=== PATIENT | female | born 1960 | race Caucasian/White ===

== ENCOUNTER 2018-02-15 17:26 | Inpatient (IN) ==
[2018-02-15] MEDS ORDERED: ALBUTEROL SULFATE 2.5 MG/3 ML NEBULIZER NEB ONE (18:00)
[2018-02-15] MEDS ORDERED: IPRATROPIUM/ALBUTEROL 3 ML AMPUL.NEB NEB ONE (18:01)
[2018-02-15] MEDS ORDERED: 0.9 % SODIUM CHLORIDE 1,000 ML IV SCH (18:15)
[2018-02-15 18:44] LABS: Basophils # (Auto) 0 K/mcL (0.0-0.3); Basophils % (Auto) 0 % (0.0-2.0); Eosinophils # (Auto) 0 K/mcL (0.0-0.7); Eosinophils % (Auto) 0 % (0.0-7.0); Granulocytes % (Auto) 92.1 % (38.0-78.0); Lymphocytes # (Auto) 0.5 K/mcL (1.5-4.8); Mean Corpuscular HGB Conc 33.6 g/dL (31.0-36.0); Monocytes # (Auto) 0.5 K/mcL (0.1-0.9); Monocytes % (Auto) 3.9 % (1.0-12.0); Platelet Count 307 K/mcL (140-440); RBC 4.46 M/mcL (4.00-5.20); Red Cell Distribution Width 16.6 % (11.5-14.5)
[2018-02-15 19:01] LABS: ALT/SGPT 12 U/l (0-40); Albumin 3.6 gm/dL (3.2-5.2); Alkaline Phosphatase 88 U/L (39-117); Blood Urea Nitrogen 20 mg/dl (6-20); Creatine Kinase 108 IU/L (24-170); Creatine Kinase MB 2.7 ng/ml (0-2.9); proBNP 409.2 pg/ml (0-125)
--- NOTE | 2018-02-15 19:13 | XRay Report ---
CLINICAL INFORMATION: Cough. Dyspnea. TECHNIQUE: PA chest x-ray. Oblique views of the right ribs. COMPARISON: Chest x-rays dated 03/01/2017 and 05/06/2011 FINDINGS: No detectable right rib fractures. No lytic lesions. Mildly elevated right hemidiaphragm. There are bibasilar infiltrates, right worse than left. Appearance is consistent with pneumonia. Mid and upper lungs are negative. There is moderate cardiomegaly. No evidence for congestive heart failure. No pneumothorax. No significant hemothorax. No mediastinal widening. Scapula and clavicles are negative IMPRESSION: 1. Negative right ribs. No detectable fracture. 2. Bilateral, bibasilar pulmonary parenchymal infiltrates, right worse than left. Findings are consistent with pneumonia Interpreted and Authenticated by: Jose Cruz Scherer 02/15/18
[2018-02-15] MEDS ORDERED: LEVALBUTEROL 1.25 MG/3 ML AMPUL.NEB NEB ONE (19:39)
[2018-02-15] MEDS ORDERED: FUROSEMIDE 20 MG/2 ML VIAL IV ONE ×2 (20:20→22:25)
[2018-02-15] MEDS ORDERED: methylPREDNISolone SOD SUCC 125 MG/2 ML VIAL IV ONE (20:30)
[2018-02-15] MEDS ORDERED: VANCOMYCIN 1,000 MG in 0.9 % SODIUM CHLORIDE 250 ML IV ONE (20:31)
[2018-02-15] MEDS ORDERED: PIPERACILLIN SODIUM/TAZOBACTAM 3.375 GM in DEXTROSE 5% IN WATER 50 ML IV ONE (20:31)
--- NOTE | 2018-02-15 20:36 | Emergency Department Note ---
SOB HPI - General Chief Complaint: Shortness of Breath/Dyspnea Stated Complaint: shortness of breath Time Seen by Provider: 02/15/18 18:26 Source: patient Mode of arrival: ambulatory Limitations: no limitations - History of Present Illness This pleasant 57-year-old female comes in with 3-day history of thinking and asthma exacerbation was occurring and becoming significantly more short of breath. She took an extra amount of prednisone yesterday, total of 50 mg and also this morning. She has chronic asthma, very severe, multiple medications including usual dose of daily prednisone of 25-30. Patient did not take her furosemide today because of being out and about. She takes this because of edema. She usually takes 20 in the morning 1 day 20 the next day, and 40 the third day, and then repeats. She has not had fevers. She has had some chills and some chronic dry mouth. She had some night sweats last night but she states that this is common when she takes the higher doses of prednisone. She sees a manager manufacturing, Dr. Angulo, for her asthma. REVIEW OF SYSTEMS: Some sore throat, runny nose. Some chronic nasal congestion/postnasal drainage. Has pain in the right lateral lower rib cage area which is common when she has had a pneumonia previously or before. It worsens with a deep breath. She is coughing. She has more phlegm than she used to. She is wheezing. Some nausea for the last couple of days but no vomiting or diarrhea or constipation or hematochezia. Some sense of stool urgency. No dysuria. Some low back discomfort but she has been more active recently. 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 No rashes No headaches but has felt weak. No anxiety or depression. - Related Data Home Medications Medication Instructions Recorded Confirmed traMADol [Ultram] 50 - 100 mg PO Q4HP PRN 04/15/16 02/01/18 fluticasone 220 mcg/actuation HFA See Label Instructions INHALATION 09/15/1608/14 aerosol inhaler .COMPLEX fluticasone 250 mcg-salmeterol 50 See Label Instructions INHALATION 09/15/1608/14 mcg/dose blistr powdr for .COMPLEX inhalation levalbuterol HFA 45 mcg/actuation See Label Instructions INHALATION 09/15/1608/14 aerosol inhaler .COMPLEX montelukast 10 mg tablet 10 mg PO QDAY tab 09/15/16 02/01/18 omeprazole 20 mg capsule,delayed 20 mg PO QDAY cap 09/15/16 02/01/18 release roflumilast 500 mcg tablet 500 mcg PO QDAY 09/15/16 02/01/18 levalbuterol 0.63 mg/3 mL solution 2.5 mg INHALATION BID PRN ml 10/11/16 for nebulization Bacillus coagulans 10 billion cell cell PO QDAY each 12/02/16 02/01/18 capsule,delayed release digestive enzymes capsule 1 cap PO TID each 12/02/16 02/01/18 mepolizumab 100 mg subcutaneous 100 mg SUB-Q Q4W 12/02/16 02/01/18 solution beclomethasone dipropionate 40 2 inh INTRANASAL QDAY 04/10/17 02/01/18 mcg/actuation nasal HFA inhaler prednisone 50 mg tablet 25 mg PO DAILY tab 08/15/17 02/01/18 Previous Rx's Medication Instructions Recorded diltiazem ER 120 mg 120 mg PO BID #90 tab 02/02/18 tablet,extended release 24 hr tiotropium bromide 2.5 2 puff INHALATION QDAY #4 g 02/02/18 mcg/actuation mist for inhalation coenzyme Q10 200 mg capsule 200 mg PO QDAY #30 cap 02/05/18 dicyclomine 10 mg capsule 10 mg PO QID #40 cap 02/05/18 furosemide 40 mg tablet 40 mg PO QDAY #30 tab 02/05/18 isosorbide dinitrate 30 mg tablet 30 mg PO QDAY #30 tab 02/05/18 potassium chloride ER 10 mEq 10 meq PO BID #60 cap 02/05/18 capsule,extended release rivas ling 750 mg PO .COMPLEX #60 02/05/18 Allergies Allergy/AdvReac Type Severity Reaction Status Date / Time albuterol Allergy Unknown Irregular Verified 02/15/18 17:27 heart rate azithromycin Allergy Unknown myalgia Verified 02/15/18 17:27 moxifloxacin [From Avelox] Allergy Unknown Heartburn Verified 02/15/18 17:27 pseudoephedrine Allergy Unknown Jittery, Verified 02/15/18 17:27 [From Sudafed] heart paplitations aspirin AdvReac Severe Swelling Verified 02/15/18 17:27 of Lip/Tongue/Throat Past Medical History - Past Medical History [facility] Narrative: Medical History (Last Updated 02/15/18 @ 20:37 by Italo Bosch DO) Steroid-induced myopathy (Chronic) Presbyesophagus (Chronic) Hiatal hernia (Chronic) Dry mouth (Chronic) Hoarseness (Chronic) Chronic throat clearing (Chronic) COPD (chronic obstructive pulmonary disease) (Chronic) Cough (Chronic) Wheezing (Chronic) DUNLAP (dyspnea on exertion) (Chronic) Fatigue (Chronic) UTI (urinary tract infection) (Chronic) Osteopenia (Chronic) GERD (gastroesophageal reflux disease) (Chronic) Idiopathic neuropathy (Chronic) Hypercholesterolemia (Chronic) Irregular heart beats (Chronic) Edema of lower extremity (Chronic) Myalgia (Chronic) Asthma (Chronic) High cholesterol (Chronic) Seizures (Chronic) Past Surgical History (Last Reviewed 02/01/18 @ 16:55 by Mesfin Angulo MD) History of section (Chronic) History of colonoscopy (Chronic 11/12/15) History of elbow surgery (Chronic) History of tonsillectomy and adenoidectomy (Chronic) Family History (Last Reviewed 02/01/18 @ 16:55 by Mesfin Angulo MD) Mother Diabetes Heart disease Father CVA (cerebral vascular accident) Sister Diabetes Thyroid disorder - Social History smoking status: Never smoker Physical Exam Limitations: no limitations General appearance: alert, in no apparent distress Head: atraumatic, normocephalic Eye: Present: EOMI, other ENT: mucous membranes moist Neck: Present: trachea midline. Absent: lymphadenopathy, thyromegaly Chest: Present: symmetric chest wall rise Respiratory: Present: rales/crackles, wheezes, prolonged expiratory phase ( slightly). Absent: stridor, accessory muscle use Cardiovascular: Present: regular rate, normal rhythm. Absent: systolic murmur, diastolic murmur Abdominal: Present: soft. Absent: distention, tenderness, guarding, rebound, rigidity, organomegaly, mass Extremities: Present: pedal edema (1+/4), pretibial edema (1+/4). Absent: calf tenderness Back: Absent: CVA tenderness (R), CVA tenderness (L) Neurological: Present: alert, oriented X3 Psychiatric: Present: serious, tearful (after hearing about needing to stay.) Skin: Present: warm, dry Course Vital Signs Temperature 98.8 F 02/15/18 17:26 Pulse Rate 105 H 02/15/18 17:26 Respiratory Rate 18 02/15/18 17:26 Blood Pressure 127/79 02/15/18 17:26 Pulse Oximetry (%) 90 02/15/18 17:26 Temperature 98.8 F 02/15/18 17:26 Pulse Rate 102 H 02/15/18 20:21 Respiratory Rate 17 02/15/18 20:01 Blood Pressure 130/80 02/15/18 20:16 Pulse Oximetry (%) 93 02/15/18 20:21 Shortness of Breath/Dyspnea - Lab Data Lab results reviewed: Yes I reviewed the patient's lab results. Result diagrams: 02/15/18 18:00 02/15/18 18:00 Lab Results 02/15/18 02/15/18 02/15/18 Range/Units 18:00 18:00 18:00 WBC 13.1 H (4.5-11.0) K/mcL RBC 4.46 (4.00-5.20) M/mcL Hgb 12.9 (12.0-15.0) g/dL Hct 38.4 (36.0-48.0) % MCV 86.0 (80.0-100.0) fL MCH 28.9 (26.0-34.0) pg MCHC 33.6 (31.0-36.0) g/dL RDW 16.6 H (11.5-14.5) % Plt Count 307 (140-440) K/mcL MPV 8.0 (7.4-10.4) fL Gran % 92.1 H (38.0-78.0) % Lymph % (Auto) 4.0 L (15.5-49.0) % [place] % (Auto) 3.9 (1.0-12.0) % Eos % (Auto) 0 (0.0-7.0) % Baso % (Auto) 0 (0.0-2.0) % Gran # 12.1 H (1.8-8.0) K/mcL Lymph # (Auto) 0.5 L (1.5-4.8) K/mcL [place] # (Auto) 0.5 (0.1-0.9) K/mcL Eos # (Auto) 0 (0.0-0.7) K/mcL Baso # (Auto) 0 (0.0-0.3) K/mcL D-Dimer 1.07 H (0.00-0.40) ug/ml Sodium 139 (133-145) mmol/L Potassium 3.6 (3.3-5.1) mmol/L Chloride 100 (96-108) mmol/L Carbon Dioxide 23 (22-30) mmol/L Anion Gap 16.0 (8-16) BUN 20 (6-20) mg/dl Creatinine 0.8 (0.6-1.1) mg/dl GFR Calculation 81 Glucose 148 H (70-105) mg/dL Calcium 10.4 (8.6-10.4) mg/dl Total Bilirubin 0.3 (0.0-1.0) mg/dL AST 17 (0-37) U/l ALT 12 (0-40) U/l Alkaline Phosphatase 88 (39-117) U/L Total Creatine Kinase 108 (24-170) IU/L CK-MB (CK-2) 2.7 (0-2.9) ng/ml Troponin T (0-0.03) ng/ml NT-Pro-B Natriuret Pep 409.2 H (0-125) pg/ml Total Protein 7.1 (5.9-8.4) gm/dL Albumin 3.6 (3.2-5.2) gm/dL Globulin 3.5 (2.2-3.7) gm/dL Albumin/Globulin Ratio 1.0 (1.0-2.3) Procalcitonin (<0.10) ng/mL 02/15/18 02/15/18 02/15/18 Range/Units 18:00 18:00 18:00 WBC (4.5-11.0) K/mcL RBC (4.00-5.20) M/mcL Hgb (12.0-15.0) g/dL Hct (36.0-48.0) % MCV (80.0-100.0) fL MCH (26.0-34.0) pg MCHC (31.0-36.0) g/dL RDW (11.5-14.5) % Plt Count (140-440) K/mcL MPV (7.4-10.4) fL Gran % (38.0-78.0) % Lymph % (Auto) (15.5-49.0) % [place] % (Auto) (1.0-12.0) % Eos % (Auto) (0.0-7.0) % Baso % (Auto) (0.0-2.0) % Gran # (1.8-8.0) K/mcL Lymph # (Auto) (1.5-4.8) K/mcL [place] # (Auto) (0.1-0.9) K/mcL Eos # (Auto) (0.0-0.7) K/mcL Baso # (Auto) (0.0-0.3) K/mcL D-Dimer (0.00-0.40) ug/ml Sodium (133-145) mmol/L Potassium (3.3-5.1) mmol/L Chloride (96-108) mmol/L Carbon Dioxide (22-30) mmol/L Anion Gap (8-16) BUN (6-20) mg/dl Creatinine (0.6-1.1) mg/dl GFR Calculation Glucose (70-105) mg/dL Calcium (8.6-10.4) mg/dl Total Bilirubin (0.0-1.0) mg/dL AST (0-37) U/l ALT (0-40) U/l Alkaline Phosphatase (39-117) U/L Total Creatine Kinase 107 (24-170) IU/L CK-MB (CK-2) (0-2.9) ng/ml Troponin T < 0.01 (0-0.03) ng/ml NT-Pro-B Natriuret Pep (0-125) pg/ml Total Protein (5.9-8.4) gm/dL Albumin (3.2-5.2) gm/dL Globulin (2.2-3.7) gm/dL Albumin/Globulin Ratio (1.0-2.3) Procalcitonin 1.95 (<0.10) ng/mL - Radiology Data Radiology results reviewed: Yes I reviewed the patient's radiology results. - EKG Data EKG results narrative: No acute coronary syndrome findings. This ECG will be read by a forepart reducer. Disposition Pt seen by SHOE REPAIRER HELPER/PA only: No Clinical Impression: Hypoxia, Immunosuppressed status Bilateral pneumonia Qualifiers: Pneumonia type: due to unspecified organism Lung location: lower lobe of lung Qualified Code(s): J18.1 - Lobar pneumonia, unspecified organism Asthma exacerbation Qualifiers: Asthma severity: moderate Asthma persistence: persistent Qualified Code(s): J45.41 - Moderate persistent asthma with (acute) exacerbation Summary: With multiple risk factors including her suppressed immune status being 1 of the most important, patient is at risk of further decompensation, worsening or not improving with just outpatient treatment. I discussed her care with Dr. Morris Pitts, hospitalist, who kindly accept her care for hospitalization here. Blood cultures, vancomycin and Zosyn ordered. He will consider adding Levaquin. CT angios ordered because of the elevated d-dimer. Her pro- calcitonin was elevated at 1.95, white count at 13.1 Disposition: Xfer As Inpt ([facility]) Condition: Fair Referrals: Megan Zhang MD [Primary Care Provider] -
--- NOTE | 2018-02-15 21:19 | Internal Med History&Physical ---
Medical - H&P: HPI Patient information: Note initiated : 02/15/18 at 9:13 pm Service Date, if different from initiated Date: [] Patient: Marissa Bermudez a 57 y/o F admitted on for shortness of breath. Chief Complaint: [] History of present illness: Ms. Bermudez is a 57 year old F Who presents with shortness of breath and productive cough. Patient states that Monday morning she woke up short of breath she had a productive cough that was thin secretions shortness of breath continued to worsen. She is felt chilled had some night sweats no fevers. She has sinus congestion which is common for her. Her symptoms developed rather rapidly and she felt like it could be a pneumonia. She did take an extra dose of her prednisone and continue to use her as needed inhalers. Patient is has severe asthma on multiple inhalers and is on high-dose steroids. She has been on 20-30 mg for some time. She has been on steroids since she was 10. She feels wheezy. Denies chest pain but has little abdominal discomfort on occasion. She did travel to [place] last week. No other travels. Sick contacts she is not aware of anybody in particular but she is around many people each day and suspects she could be exposed by someone. She sees Dr. Angulo and Dr. Jovel. She sees Dr. Garsia for CAD. She did have a cardiac catheterization which showed narrowing. She is allergic to aspirin and she did not want intervention. She is starting on a cholesterol medication. She has chronic peripheral edema GERD steroid myopathy In the ER she was seen and found to have a mildly elevated white blood cell count she is tachypneic and tachycardic and she had no lid pro calcitonin with a chest x-ray that showed infiltrate bibasilar with right side much worse. She is given multiple breathing treatments and put on OxiMax because of hypoxia. She is not on oxygen at home. The low S she gets at home is 91% she states. Review of Systems: Pertinent positives as above . denies headache/fever/nausea/vomiting/chest pain/ diarrhea. Remaining 10 point review of systems reviewed negative Medical - H&P: PMH Medical history: Medical History (Last Updated 02/15/18 @ 20:37 by Italo Bosch DO) Steroid-induced myopathy (Chronic) Presbyesophagus (Chronic) Hiatal hernia (Chronic) Dry mouth (Chronic) Hoarseness (Chronic) Chronic throat clearing (Chronic) COPD (chronic obstructive pulmonary disease) (Chronic) Cough (Chronic) Wheezing (Chronic) DUNLAP (dyspnea on exertion) (Chronic) Fatigue (Chronic) UTI (urinary tract infection) (Chronic) Osteopenia (Chronic) GERD (gastroesophageal reflux disease) (Chronic) Idiopathic neuropathy (Chronic) Hypercholesterolemia (Chronic) Irregular heart beats (Chronic) Edema of lower extremity (Chronic) Myalgia (Chronic) Asthma (Chronic) High cholesterol (Chronic) Seizures (Chronic) CAD no intervention Past Surgical History (Last Reviewed 02/01/18 @ 16:55 by Mesfin Angulo MD) History of section (Chronic) History of colonoscopy (Chronic 11/12/15) History of elbow surgery (Chronic) History of tonsillectomy and adenoidectomy (Chronic) Family History (Last Reviewed 02/01/18 @ 16:55 by Mesfin Angulo MD) Mother Diabetes Heart disease Father CVA (cerebral vascular accident) Sister Diabetes Thyroid disorder Social History (Last Updated 02/01/18 @ 17:06 by Mesfin Angulo MD) Denies tobacco alcohol ambulates with a walker lives with family Medical - H&P: Meds Home Medications Medication Instructions Recorded Confirmed Type fluticasone 220 mcg/actuation HFA See Label Instructions INHALATION 09/15/16 History aerosol inhaler .COMPLEX fluticasone 250 mcg-salmeterol 50 See Label Instructions INHALATION 09/15/16 History mcg/dose blistr powdr for .COMPLEX inhalation levalbuterol HFA 45 mcg/actuation See Label Instructions INHALATION 09/15/16 History aerosol inhaler .COMPLEX montelukast 10 mg tablet 10 mg PO QDAY tab 09/15/16 02/15/18 History omeprazole 20 mg capsule,delayed 20 mg PO QDAY cap 09/15/16 02/15/18 History release roflumilast 500 mcg tablet 500 mcg PO QDAY 09/15/16 02/15/18 History levalbuterol 0.63 mg/3 mL solution 1.25 mg INHALATION BID PRN ml 10/11/1602/15 History for nebulization Bacillus coagulans 10 billion cell 1 tab PO QDAY each 12/02/16 02/15/18 History capsule,delayed release mepolizumab 100 mg subcutaneous 100 mg SUB-Q Q4W 12/02/16 02/15/18 History solution beclomethasone dipropionate 40 2 inh INTRANASAL QDAY 04/10/17 02/15/18 History mcg/actuation nasal HFA inhaler prednisone 50 mg tablet 25 mg PO DAILY tab 08/15/17 02/15/18 History diltiazem ER 120 mg 120 mg PO BID #90 tab 02/02/18 02/15/18 Rx tablet,extended release 24 hr tiotropium bromide 2.5 2 puff INHALATION QDAY #4 g 02/02/18 02/15/18 Rx mcg/actuation mist for inhalation coenzyme Q10 200 mg capsule 200 mg PO QDAY #30 cap 02/05/18 02/15/18 Rx furosemide 40 mg tablet 40 mg PO QDAY #30 tab 02/05/18 02/15/18 Rx isosorbide dinitrate 30 mg tablet 30 mg PO QDAY #30 tab 02/05/18 02/15/18 Rx potassium chloride ER 10 mEq 10 meq PO BID #60 cap 02/05/18 02/15/18 Rx capsule,extended release rivas ling 1,500 mg PO BID 02/15/18 02/15/18 History Allergies Allergy/AdvReac Type Severity Reaction Status Date / Time albuterol Allergy Unknown Irregular Verified 02/15/18 17:27 heart rate azithromycin Allergy Unknown myalgia Verified 02/15/18 17:27 moxifloxacin [From Avelox] Allergy Unknown Heartburn Verified 02/15/18 17:27 pseudoephedrine Allergy Unknown Jittery, Verified 02/15/18 17:27 [From Sudafed] heart paplitations aspirin AdvReac Severe Swelling Verified 02/15/18 17:27 of Lip/Tongue/Throat Medical - H&P: Exam - Constitutional Vitals: Temp Pulse Resp BP Pulse Ox 98.8 F 103 H 17 117/89 93 02/15/18 17:26 02/15/18 20:59 02/15/18 20:01 02/15/18 20:46 02/15/18 20:59 Exam: General: Alert, Awake, No acute Distress Eyes/N/T: EOMI, PEERL, DMM Head/Neck: neck supple, normocephalic atraumatic CV: RRR, No murmurs, normal s1/s2 Pulm: Diminished breath sounds bibasilar mild rhonchi bilaterally and mild wheezing bilaterally Abd: soft, nontender, +BS x4, Ext: no clubbing/cyanosis, 2-3+ bilateral lower extremity edema Neuro: Alert, no focal deficits, moves all extremities, CN 2-12 grossly intact, symmetrical strength b/l upper/lower, sensations intact b/l upper/lower Skin: warm/dry, smith facies, skin thinning, facial erythema Medical - H&P: Reslt - Labs CBC & Chem 7: 02/15/18 18:00 02/15/18 18:00 Labs: Short CBC 02/15/18 Range/Units 18:00 WBC 13.1 H (4.5-11.0) K/mcL Hgb 12.9 (12.0-15.0) g/dL Hct 38.4 (36.0-48.0) % Plt Count 307 (140-440) K/mcL BMP 02/15/18 18:00 Sodium 139 Potassium 3.6 Chloride 100 Carbon Dioxide 23 BUN 20 Creatinine 0.8 Glucose 148 H Calcium 10.4 Cardiac Enzymes 02/15/18 02/15/18 02/15/18 Range/Units 18:00 18:00 18:00 Total Creatine Kinase 108 107 (24-170) IU/L CK-MB (CK-2) 2.7 (0-2.9) ng/ml Troponin T < 0.01 (0-0.03) ng/ml Liver Function 02/15/18 Range/Units 18:00 Total Bilirubin 0.3 (0.0-1.0) mg/dL AST 17 (0-37) U/l ALT 12 (0-40) U/l Alkaline Phosphatase 88 (39-117) U/L Albumin 3.6 (3.2-5.2) gm/dL - Impressions Chest x-ray with bilateral infiltrates worse on the right Medical - H&P: A/P - Narrative A/P Narrative: A: *Acute hypoxic respiratory failure: *Pneumonia in immunosuppressed patient: -elevated PCT *Asthma exacerbation: Follows Dr. Angulo in [facility] *Sepsis: *Immunosuppression secondary to chronic prednisone use for asthma: She states she has been on steroids since she was 10 -Currently on 25-30 mg daily *CAD: Has not had intervention. Follows with Dr. Sams, recently started medication for hyperlipidemia *Sequelae of chronic glucocorticoids: Including dermatological changes, cushingoid features, peripheral edema, and steroid myopathy *GERD: P: -vanco/zosyn/levaquin -SC including fungal cx's. BC also pending -Nebs/IS/Acapella/RT -Steroids (wean) -wean O2 -monitor PEF -cont home meds - -ppx: lovenox/pepcid full code
[2018-02-15] MEDS: NITROGLYCERIN 0.4 MG TAB.SUBL SL PRN ×2 (21:26→21:31)
[2018-02-15] MEDS ORDERED: ALBUTEROL SULFATE 5 MG/ML NEB SOLUTION BOTTLE NEB ONE ×2 (21:47→23:02)
[2018-02-15] MEDS ORDERED: VANCOMYCIN PER PHARMACY IV ONE (22:29)
[2018-02-15] MEDS ORDERED: IPRATROPIUM/ALBUTEROL 3 ML AMPUL.NEB NEB PRN (22:29)
[2018-02-15] MEDS ORDERED: PROMETHAZINE 25 MG TABLET PO PRN (22:29)
[2018-02-15] MEDS ORDERED: ACETAMINOPHEN 325 MG TABLET PO PRN (22:29)
[2018-02-15] MEDS ORDERED: DEXTROSE 31 GM ORAL.SUSP PO PRN (22:29)
[2018-02-15] MEDS ORDERED: ONDANSETRON 4 MG/2 ML VIAL IV PRN (22:29)
[2018-02-15] MEDS ORDERED: PROCHLORPERAZINE 25 MG SUPP.RECT PR PRN (22:29)
[2018-02-15] MEDS ORDERED: NITROGLYCERIN 0.4 MG TAB.SUBL SL PRN (22:29)
[2018-02-15] MEDS ORDERED: DEXTROSE 50% 50 ML VIAL IV PRN (22:29)
[2018-02-15] MEDS ORDERED: FAMOTIDINE 20 MG TABLET PO ONE (22:42)
[2018-02-15] MEDS ORDERED: LEVOFLOXACIN 750 MG/150 ML BAG IV ONE (22:43)
[2018-02-15] MEDS: INSULIN LISPRO 1 UNIT/0.01 ML UNIT SQ SCH (22:59)
[2018-02-15] MEDS: PIPERACILLIN SODIUM/TAZOBACTAM 3.375 GM in DEXTROSE 5% IN WATER 50 ML IV SCH (22:59)
[2018-02-15] MEDS: LEVOFLOXACIN 750 MG/150 ML BAG IV SCH (23:00)
[2018-02-15] MEDS ORDERED: methylPREDNISolone SOD SUCC 125 MG/2 ML VIAL ONE (23:19)
[2018-02-16] MEDS ORDERED: LEVALBUTEROL 0.63 MG/3 ML AMPUL.NEB ONE (00:01)
[2018-02-16] MEDS: FAMOTIDINE 20 MG TABLET PO SCH ×3 (00:07→21:44)
[2018-02-16] MEDS: 0.9 % SODIUM CHLORIDE 10 ML SYRINGE IV SCH ×4 (00:07→21:45)
[2018-02-16] MEDS: LEVALBUTEROL 0.63 MG/3 ML AMPUL.NEB NEB SCH ×4 (00:30→18:35)
[2018-02-16] MEDS ORDERED: IPRATROPIUM 2.5 ML AMPUL.NEB ONE (00:39)
[2018-02-16] MEDS: IPRATROPIUM 2.5 ML AMPUL.NEB NEB SCH ×4 (00:41→18:35)
[2018-02-16] MEDS: PIPERACILLIN SODIUM/TAZOBACTAM 3.375 GM in DEXTROSE 5% IN WATER 50 ML IV SCH ×4 (01:19→16:58)
[2018-02-16] MEDS: methylPREDNISolone SOD SUCC 125 MG/2 ML VIAL IV SCH ×4 (04:25→21:45)
[2018-02-16 05:33] LABS: Basophils # (Auto) 0 K/mcL (0.0-0.3); Basophils % (Auto) 0 % (0.0-2.0); Eosinophils # (Auto) 0 K/mcL (0.0-0.7); Eosinophils % (Auto) 0 % (0.0-7.0); Granulocytes % (Auto) 95.3 % (38.0-78.0); Lymphocytes # (Auto) 0.1 K/mcL (1.5-4.8); Lymphocytes % (Auto) 1.4 % (15.5-49.0); Mean Cell Volume 86.4 fL (80.0-100.0); Mean Corpuscular HGB Conc 33.3 g/dL (31.0-36.0); Monocytes # (Auto) 0.3 K/mcL (0.1-0.9); Monocytes % (Auto) 3.3 % (1.0-12.0); Platelet Count 299 K/mcL (140-440); RBC 3.95 M/mcL (4.00-5.20); Red Cell Distribution Width 16.5 % (11.5-14.5)
[2018-02-16 05:49] LABS: ALT/SGPT 10 U/l (0-40); Albumin 3.1 gm/dL (3.2-5.2); Albumin/Globulin Ratio 0.9 (1.0-2.3); Alkaline Phosphatase 75 U/L (39-117); Bilirubin,Direct < 0.2 mg/dL (0.0-0.3); Blood Urea Nitrogen 18 mg/dl (6-20); Gamma Glutamyl Transpeptidase 45 U/L (5-36); Uric Acid 6.7 mg/dL (2.5-8.0)
--- NOTE | 2018-02-16 06:09 | Cat Scan Report ---
CLINICAL INFORMATION: Dyspnea. Abnormal chest x-ray with probable pneumonia COMPARISON: Chest x-ray and right RIBS dated 02/15/2018. Previous chest x-ray dated 03/01/2017 TECHNIQUE: Axial images obtained through the chest. 60 mL contrast material intravenous contrast was administered, and scanning was performed during pulmonary arterial phase. Sagittally and coronally reformatted images were obtained. MIP reformatted images. FINDINGS: Main pulmonary artery, right pulmonary artery, left pulmonary artery are negative. No intraluminal filling defects. No lobar, segmental, or subsegmental abnormalities. Negative examination for pulmonary embolism. Mild tree in bud type infiltrate in the right upper lobe. There is right middle lobe and right lower lobe volume loss and infiltrate with air bronchograms. Appearance is consistent with pneumonia. Mild left lower lobe infiltrate. Follow-up radiographs are recommended. 4 mm noncalcified left upper lobe nodule, image 47/120 no other pulmonary parenchymal nodules identified. Optional [address] follow-up recommended per Fleischner Society guidelines No hilar or mediastinal pathologic adenopathy. No axillary or supraclavicular adenopathy. No pleural fluid. No pericardial fluid. On caudal-most images there is a 2.1 cm mass in the pancreatic neck. This is not optimally visualized. Pancreatic CT scan or MRI scan recommended for further evaluation. Thoracic spine is negative. No fractures. No lytic lesion. There are fractures of the left seventh and fifth ribs anterolaterally. There appears to be some healing indicating these are not acute. Clinical correlation necessary. No left rib fractures. Scapula and clavicles are negative. Examination was initially interpreted by [facility] IMPRESSION: 1. Negative examination for pulmonary embolism 2. Pulmonary parenchymal infiltrates consistent with pneumonia. Follow-up recommended 3. Fractures of the left seventh and fifth ribs anterolaterally. Chronicity not certain 4. 2.1 cm low density lesion in neck of the pancreas. Recommend pancreatic evaluation with MRI scan or CT scan The exam was performed using radiation dose optimization techniques including, but not limited to, automated exposure control, adjustment of the mA and/or kV according to patient size and use of iterative reconstruction technique. Interpreted and Authenticated by: Jose Cruz Scherer 02/16/18
[2018-02-16] MEDS ORDERED: VANCOMYCIN PER PHARMACY IV SCH (06:15)
[2018-02-16] MEDS ORDERED: POTASSIUM CHLORIDE 20 MEQ TABLET PO ONE (07:13)
--- NOTE | 2018-02-16 07:16 | Internal Med Progress Note ---
Medical - PN: Subj Patient information: Note initiated : 02/16/18 at 7:08 am Service Date, if different from initiated Date: [] Patient: Marissa Bermudez a 57 y/o F admitted on 02/15/18 for shortness of breath. Chief Complaint: [] Interval history: Ms. Bermudez is a 57 year old F Who presents with shortness of breath and productive cough. Patient states that Monday morning she woke up short of breath she had a productive cough that was thin secretions shortness of breath continued to worsen. She is felt chilled had some night sweats no fevers. She has sinus congestion which is common for her. Her symptoms developed rather rapidly and she felt like it could be a pneumonia. She did take an extra dose of her prednisone and continue to use her as needed inhalers. Patient is has severe asthma on multiple inhalers and is on high-dose steroids. She has been on 20-30 mg for some time. She has been on steroids since she was 10. She feels wheezy. Denies chest pain but has little abdominal discomfort on occasion. She did travel to [place] last week. No other travels. Sick contacts she is not aware of anybody in particular but she is around many people each day and suspects she could be exposed by someone. She sees Dr. Angulo and Dr. Jovel. She sees Dr. Garsia for CAD. She did have a cardiac catheterization which showed narrowing. She is allergic to aspirin and she did not want intervention. She is starting on a cholesterol medication. She has chronic peripheral edema GERD steroid myopathy In the ER she was seen and found to have a mildly elevated white blood cell count she is tachypneic and tachycardic and she had no lid pro calcitonin with a chest x-ray that showed infiltrate bibasilar with right side much worse. She is given multiple breathing treatments and put on OxiMax because of hypoxia. She is not on oxygen at home. The low S she gets at home is 91% she states. 02/16 Feeling much better today. Her coughing is much less productive and less frequent. Her shortness of breath all the present is much improved. Was able to get up in the bed and get to the chair without becoming too short of breath. Review of Systems: denies headache/fever/chills/nausea/vomiting/chest or abdominal pain/diarrhea. Otherwise see above. - Constitutional Vitals: Vital Signs Temp Pulse Resp BP Pulse Ox 98.9 F 114 H 22 116/82 97 02/16/18 04:40 02/15/18 23:59 02/16/18 04:40 02/16/18 04:40 02/16/18 04:40 Period Temp Pulse Resp BP Sys/Baird Pulse Ox Last 24 Hr 98.8 F-99.0 F 96-117 17-33 108-149/74-92 89-99 Intake and Output 02/15/18 02/16/18 02/16/18 21:59 05:59 13:59 Intake Total 250 / 250 Output Total 1000 / 1000 Balance -750 / -750 Weight 62.142 kg 62.142 kg Intake & Output: Intake & Output 02/15/18 02/16/18 02/16/18 21:59 05:59 13:59 Intake Total 250 / 250 Output Total 1000 / 1000 Balance -750 / -750 Weight 62.142 kg 62.142 kg Intake: IV 250 / 250 Zosyn 3.375 gm In Dextrose 5% 100 / 100 in Water 50 ml @ 100 mls/hr IV Q6H [facility] Rx#:[id number] Output: Void Amount 1000 / 1000 Other: Urine Appearance Cloudy Urine Color Bright Yellow Urine Odor Normal Exam: General: Alert, Awake, No acute Distress Eyes/N/T: EOMI, Head/Neck: neck supple, CV: RRR, No murmurs, normal s1/s2 Pulm: Diminished breath b/l but better aeration today and mild b/l exp wheezing , mild rhonchi bilaterally Abd: soft, nontender, +BS x4, protuberant Ext: no clubbing/cyanosis, 2-3+ bilateral lower extremity edema Neuro: Alert, no focal deficits, moves all extremities, Skin: warm/dry, smith facies, skin thinning, facial erythema Medical - PN: Obj Da - Labs CBC & Chem 7: 02/16/18 03:44 02/16/18 03:44 Labs: Abnormal Lab Results 02/16/18 02/16/18 02/15/18 03:44 03:44 18:00 WBC RBC 3.95 L Hgb 11.4 L Hct 34.1 L RDW 16.5 H Gran % 95.3 H Lymph % (Auto) 1.4 L Gran # 9.9 H Lymph # (Auto) 0.1 L D-Dimer Potassium 3.2 L Anion Gap 18.0 H Glucose 191 H 148 H GGT 45 H NT-Pro-B Natriuret Pep 409.2 H Albumin 3.1 L Albumin/Globulin Ratio 0.9 L Triglycerides 181 H 02/15/18 02/15/18 18:00 18:00 WBC 13.1 H RBC Hgb Hct RDW 16.6 H Gran % 92.1 H Lymph % (Auto) 4.0 L Gran # 12.1 H Lymph # (Auto) 0.5 L D-Dimer 1.07 H Potassium Anion Gap Glucose GGT NT-Pro-B Natriuret Pep Albumin Albumin/Globulin Ratio Triglycerides Meds: Medications Acetaminophen (Tylenol) 650 mg PO Q6HP PRN PRN Reason: PAIN/FEVER > 101 Albuterol/Ipratropium (Duoneb) 3 ml NEB Q6HRT PRN PRN Reason: Bronchospasm Atorvastatin Calcium (Lipitor) 20 mg PO HS [facility] Dextrose (Dextrose 50%) 0 ml IV UD PRN PRN Reason: Hypoglycemia Diagnostic Test (Pha) (Accu-Chek) 1 each FS ACHS [facility] Last Admin: 02/15/18 22:58 Dose: 1 each Diltiazem HCl (Cardizem Cd) 120 mg PO BID [facility] Enoxaparin Sodium (Lovenox) 40 mg SQ DAILY [facility] Famotidine (Pepcid) 20 mg PO BID [facility] Last Admin: 02/16/18 00:07 Dose: 20 mg Furosemide (Lasix) 40 mg PO QDAY [facility] Glucose (Insta-Glucose) 15 gm PO PRN PRN PRN Reason: Hypoglycemia Levofloxacin (Levaquin) 750 mg in 150 mls @ 100 mls/hr IV Q24H [facility] Last Infusion: 02/16/18 01:22 Dose: Infused Piperacillin Sod/Tazobactam (Sod 3.375 gm/ Dextrose) 50 mls @ 100 mls/hr IV Q6H [facility] Last Admin: 02/16/18 06:59 Dose: 100 mls/hr Vancomycin HCl 1,000 mg/ (Sodium Chloride) 250 mls @ 250 mls/hr IV Q12H [facility] Insulin Human Lispro (Humalog) 0 unit SQ [facility]; Protocol Last Admin: 02/15/18 22:59 Dose: Not Given Ipratropium [place] (Atrovent) 2.5 ml NEB Q6HRT [facility] Last Admin: 02/16/18 00:41 Dose: 2.5 ml Lactobacillus Rhamnosus (Culturelle) 1 cap PO BID [facility] Levalbuterol HCl (Xopenex) 0.63 mg NEB Q6HRT [facility] Last Admin: 02/16/18 00:30 Dose: 0.63 mg Methylprednisolone Sodium Succinate (Solu-Medrol) 80 mg IV Q8 [facility] Last Admin: 02/16/18 06:29 Dose: Not Given Montelukast Sodium (Singular) 10 mg PO QDAY [facility] Nitroglycerin (Nitrostat) 0.4 mg SL Q5M PRN PRN Reason: Chest Pain Non-Formulary Medication (Fluticasone/Salmeterol [Advair 250-50 Diskus]) 0 mcg INHALATION .COMPLEX [facility] Non-Formulary Medication (Mepolizumab [Nucala]) 100 mg SUB-Q Q4W [facility] Non-Formulary Medication (Roflumilast [Daliresp]) 500 mcg PO QDAY [facility] Ondansetron HCl (Zofran) 4 mg IV Q4HP PRN PRN Reason: Nausea And Vomiting Potassium Chloride (Kdur) 10 meq PO BIDCC [facility] Prochlorperazine Maleate (Compazine) 12.5 mg [place] Q12HP PRN PRN Reason: Nausea And Vomiting Promethazine HCl (Phenergan) 12.5 mg PO Q6HP PRN PRN Reason: Nausea And Vomiting Sodium Chloride (Saline Flush) 10 ml IV Q8 [facility] Last Admin: 02/16/18 07:05 Dose: 10 ml Vancomycin HCl (Vancomycin Per Pharmacy) 1 order IV UD [facility] Medical - PN: A/P - Time Spent With Patient Total time spent is greater than 50% in coordination of care (as documented) at patient's floor/unit and/or counseling patient: - Narrative A/P Narrative: A: *Acute hypoxic respiratory failure: -on oxymask 3L *Pneumonia in immunosuppressed patient: -PCT/leukocytosis improving *Asthma exacerbation: Follows Dr. 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 Follows with Dr. Sams, recently started medication for hyperlipidemia *Sequelae of chronic glucocorticoids: Including dermatological changes, cushingoid features, peripheral edema, and steroid myopathy *GERD: P: -vanco/zosyn/levaquin -SC including fungal cx's pending. BC also pending -Nebs/IS/Acapella/RT -Steroids (wean) -wean O2 -monitor PEF -cont home meds -a1c -ppx: lovenox/pepcid full code Medical - PN: Qual - VTE Deep Vein Thrombosis/Pulmonary Embolism Present on Admission: No
[2018-02-16] MEDS: POTASSIUM CHLORIDE 10 MEQ TABLET PO SCH ×2 (08:18→17:41)
[2018-02-16] MEDS: DILTIAZEM 120 MG CAP.XL.24H PO SCH ×2 (08:18→21:44)
[2018-02-16] MEDS: MONTELUKAST 10 MG TABLET PO SCH (08:18)
[2018-02-16] MEDS: FUROSEMIDE 40 MG TABLET PO SCH (08:18)
[2018-02-16] MEDS: INSULIN LISPRO 1 UNIT/0.01 ML UNIT SQ SCH ×4 (08:19→21:19)
[2018-02-16] MEDS: ENOXAPARIN 40 MG/0.4 ML SYRINGE SQ SCH (08:19)
[2018-02-16] MEDS: INSULIN GLARGINE, HUMAN 1 UNIT/0.01 ML SQ SCH ×2 (08:20→09:39)
[2018-02-16] MEDS: FLUTICASONE/SALMETEROL 250/50 INHALER #14 INH SCH ×2 (08:22→10:40)
[2018-02-16] MEDS: VANCOMYCIN 1,000 MG in 0.9 % SODIUM CHLORIDE 250 ML IV SCH ×2 (09:03→21:44)
[2018-02-16] MEDS: LACTOBACILLUS 1 CAPSULE PO SCH ×2 (09:03→21:44)
[2018-02-16] MEDS: FLUTICASONE/SALMETEROL 500/50 INHALER #14 INH SCH ×2 (10:25→21:43)
[2018-02-16 13:36] LABS: Hemoglobin A1C 6.8 % HGB (4.0-6.0)
[2018-02-16] MEDS: LEVOFLOXACIN 750 MG/150 ML BAG IV SCH (14:43)
[2018-02-16] MEDS: ATORVASTATIN 20 MG TABLET PO SCH (21:44)
[2018-02-17] MEDS: PIPERACILLIN SODIUM/TAZOBACTAM 3.375 GM in DEXTROSE 5% IN WATER 50 ML IV SCH ×5 (00:24→23:43)
[2018-02-17] MEDS: IPRATROPIUM 2.5 ML AMPUL.NEB NEB SCH ×4 (01:57→19:12)
[2018-02-17] MEDS: LEVALBUTEROL 0.63 MG/3 ML AMPUL.NEB NEB SCH ×4 (01:57→19:12)
[2018-02-17 04:11] LABS: Blood Urea Nitrogen 22 mg/dl (6-20)
[2018-02-17] MEDS: 0.9 % SODIUM CHLORIDE 10 ML SYRINGE IV SCH ×3 (05:49→21:21)
[2018-02-17] MEDS: methylPREDNISolone SOD SUCC 125 MG/2 ML VIAL IV SCH (05:49)
--- NOTE | 2018-02-17 07:03 | Internal Med Progress Note ---
Medical - PN: Subj Patient information: Note initiated : 02/17/18 at 6:55 am Service Date, if different from initiated Date: [] Patient: Marissa Bermudez a 57 y/o F admitted on 02/15/18 for shortness of breath. Chief Complaint: [] Interval history: Ms. Bermudez is a 57 year old F Who presents with shortness of breath and productive cough. Patient states that Monday morning she woke up short of breath she had a productive cough that was thin secretions shortness of breath continued to worsen. She is felt chilled had some night sweats no fevers. She has sinus congestion which is common for her. Her symptoms developed rather rapidly and she felt like it could be a pneumonia. She did take an extra dose of her prednisone and continue to use her as needed inhalers. Patient is has severe asthma on multiple inhalers and is on high-dose steroids. She has been on 20-30 mg for some time. She has been on steroids since she was 10. She feels wheezy. Denies chest pain but has little abdominal discomfort on occasion. She did travel to [place] last week. No other travels. Sick contacts she is not aware of anybody in particular but she is around many people each day and suspects she could be exposed by someone. She sees Dr. Angulo and Dr. Jovel. She sees Dr. Garsia for CAD. She did have a cardiac catheterization which showed narrowing. She is allergic to aspirin and she did not want intervention. She is starting on a cholesterol medication. She has chronic peripheral edema GERD steroid myopathy In the ER she was seen and found to have a mildly elevated white blood cell count she is tachypneic and tachycardic and she had no lid pro calcitonin with a chest x-ray that showed infiltrate bibasilar with right side much worse. She is given multiple breathing treatments and put on OxiMax because of hypoxia. She is not on oxygen at home. The lowest she gets at home is 91% she states. 02/16 Feeling much better today. Her coughing is much less productive and less frequent. Her shortness of breath all the present is much improved. Was able to get up in the bed and get to the chair without becoming too short of breath. 02/17 Breathing is about the same as yesterday. Cough continues with less wheezing. Working with physical therapy in the room only. Review of Systems: denies headache/fever/chills/nausea/vomiting/chest or abdominal pain/diarrhea. Otherwise see above. - Constitutional Vitals: Vital Signs Temp Pulse Resp BP Pulse Ox 99.2 F H 97 H 26 H 120/80 94 02/17/18 04:51 02/16/18 20:00 02/17/18 04:51 02/17/18 04:51 02/17/18 04:51 Period Temp Pulse Resp BP Sys/Baird Pulse Ox Last 24 Hr 97.2 F-100.2 F 97-101 - 118-128/72-83 94-99 Intake and Output 02/16/18 02/17/18 02/17/18 21:59 05:59 13:59 Intake Total 420 / 420 300 / 300 Output Total 200 / 200 675 / 675 Balance 220 / 220 -375 / -375 Weight 61.961 kg Intake & Output: Intake & Output 02/16/18 02/17/18 02/17/18 21:59 05:59 13:59 Intake Total 420 / 420 300 / 300 Output Total 200 / 200 675 / 675 Balance 220 / 220 -375 / -375 Weight 61.961 kg Intake: IV 200 / 200 300 / 300 Zosyn 3.375 gm In Dextrose 5% 50 / 50 50 / 50 in Water 50 ml @ 100 mls/hr IV Q6H [facility] Rx#:[id number] Vancomycin 1,000 mg In Sodium 250 / 250 Chloride 0.9% 250 ml @ 250 mls/ hr IV Q12H [facility] Rx#:[id number] Oral 220 / 220 Output: Void Amount 300 / 300 Urine/Stool Mix 200 / 200 375 / 375 Other: Stool Size Small Small Stool Color Brown Brown Stool Consistency Loose Exam: General: Alert, Awake, No acute Distress Eyes/N/T: EOMI, Head/Neck: neck supple, CV: RRR, No murmurs, normal s1/s2 Pulm: better aeration, bibasilar rales, mild b/l rhonchi Abd: soft, nontender, +BS x4, protuberant Ext: no clubbing/cyanosis, 2-3+ bilateral lower extremity edema Neuro: Alert, no focal deficits, moves all extremities, Skin: warm/dry, smith facies, skin thinning, facial erythema Medical - PN: Obj Da - Labs CBC & Chem 7: 02/16/18 03:44 02/17/18 03:29 Labs: Abnormal Lab Results 02/17/18 02/16/18 02/16/18 03:29 03:44 03:44 WBC RBC Hgb Hct RDW Gran % Lymph % (Auto) Gran # Lymph # (Auto) D-Dimer Potassium 3.2 L Anion Gap 18.0 H BUN 22 H Glucose 185 H 191 H Hemoglobin A1c 6.8 H GGT 45 H NT-Pro-B Natriuret Pep Albumin 3.1 L Albumin/Globulin Ratio 0.9 L Triglycerides 181 H 02/16/18 02/15/18 02/15/18 03:44 18:00 18:00 WBC RBC 3.95 L Hgb 11.4 L Hct 34.1 L RDW 16.5 H Gran % 95.3 H Lymph % (Auto) 1.4 L Gran # 9.9 H Lymph # (Auto) 0.1 L D-Dimer 1.07 H Potassium Anion Gap BUN Glucose 148 H Hemoglobin A1c GGT NT-Pro-B Natriuret Pep 409.2 H Albumin Albumin/Globulin Ratio Triglycerides 02/15/18 18:00 WBC 13.1 H RBC Hgb Hct RDW 16.6 H Gran % 92.1 H Lymph % (Auto) 4.0 L Gran # 12.1 H Lymph # (Auto) 0.5 L D-Dimer Potassium Anion Gap BUN Glucose Hemoglobin A1c GGT NT-Pro-B Natriuret Pep Albumin Albumin/Globulin Ratio Triglycerides Meds: Medications Acetaminophen (Tylenol) 650 mg PO Q6HP PRN PRN Reason: PAIN/FEVER > 101 Last Admin: 02/16/18 23:50 Dose: 650 mg Albuterol/Ipratropium (Duoneb) 3 ml NEB Q6HRT PRN PRN Reason: Bronchospasm Atorvastatin Calcium (Lipitor) 20 mg PO HS [facility] Last Admin: 02/16/18 21:44 Dose: 20 mg Dextrose (Dextrose 50%) 0 ml IV UD PRN PRN Reason: Hypoglycemia Diagnostic Test (Pha) (Accu-Chek) 1 each FS ACHS [facility] Last Admin: 02/16/18 21:18 Dose: 1 each Diltiazem HCl (Cardizem Cd) 120 mg PO BID [facility] Last Admin: 12/21/18 21:44 Dose: 120 mg Enoxaparin Sodium (Lovenox) 40 mg SQ DAILY [facility] Last Admin: 02/16/18 08:19 Dose: 40 mg Famotidine (Pepcid) 20 mg PO BID [facility] Last Admin: 02/16/18 21:44 Dose: 20 mg Furosemide (Lasix) 40 mg PO QDAY [facility] Last Admin: 02/16/18 08:18 Dose: 40 mg Glucose (Insta-Glucose) 15 gm PO PRN PRN PRN Reason: Hypoglycemia Levofloxacin (Levaquin) 750 mg in 150 mls @ 100 mls/hr IV Q24H [facility] Last Infusion: 02/16/18 20:16 Dose: Infused Piperacillin Sod/Tazobactam (Sod 3.375 gm/ Dextrose) 50 mls @ 100 mls/hr IV Q6H [facility] Last Admin: 02/17/18 05:50 Dose: 100 mls/hr Vancomycin HCl 1,000 mg/ (Sodium Chloride) 250 mls @ 250 mls/hr IV Q12H [facility] Last Infusion: 02/17/18 01:58 Dose: Infused Insulin Human Lispro (Humalog) 0 unit SQ [facility]; Protocol Last Admin: 02/16/18 21:19 Dose: Not Given Ipratropium [place] (Atrovent) 2.5 ml NEB Q6HRT [facility] Last Admin: 02/17/18 01:57 Dose: 2.5 ml Lactobacillus Rhamnosus (Culturelle) 1 cap PO BID [facility] Last Admin: 02/16/18 21:44 Dose: 1 cap Levalbuterol HCl (Xopenex) 0.63 mg NEB Q6HRT [facility] Last Admin: 02/17/18 01:57 Dose: 0.63 mg Methylprednisolone Sodium Succinate (Solu-Medrol) 80 mg IV Q8 [facility] Last Admin: 02/17/18 05:49 Dose: 80 mg Montelukast Sodium (Singular) 10 mg PO QDAY [facility] Last Admin: 02/16/18 08:18 Dose: 10 mg Nitroglycerin (Nitrostat) 0.4 mg SL Q5M PRN PRN Reason: Chest Pain Ondansetron HCl (Zofran) 4 mg IV Q4HP PRN PRN Reason: Nausea And Vomiting Roflumilast [ Daliresp] 500 Mcg Tab 1 dose PO DAILY [facility] Last Admin: 02/16/18 10:26 Dose: 1 dose Potassium Chloride (Kdur) 10 meq PO BIDCC [facility] Last Admin: 02/16/18 17:41 Dose: 10 meq Prochlorperazine Maleate (Compazine) 12.5 mg [place] Q12HP PRN PRN Reason: Nausea And Vomiting Promethazine HCl (Phenergan) 12.5 mg PO Q6HP PRN PRN Reason: Nausea And Vomiting Fluticasone/Salmeterol (Advair 500-50 Diskus) 1 puff INH BID [facility] Last Admin: 02/16/18 21:43 Dose: 1 puff Sodium Chloride (Saline Flush) 10 ml IV Q8 [facility] Last Admin: 02/17/18 05:49 Dose: 10 ml Vancomycin HCl (Vancomycin Per Pharmacy) 1 order IV UD [facility] Medical - PN: A/P - Time Spent With Patient Total time spent is greater than 50% in coordination of care (as documented) at patient's floor/unit and/or counseling patient: - Narrative A/P Narrative: A: *Acute hypoxic respiratory failure: -down to 2L oxymask from Nonrebreather on admit *Pneumonia in immunosuppressed patient: -PCT/leukocytosis improving *Asthma exacerbation: Follows Dr. 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 Follows with Dr. 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 BC also pending -Nebs/IS/Acapella/RT -Steroids (wean) -wean O2 -monitor PEF -cont home meds -currently on SSI -TEDs, elevate legs, IV lasix today -ppx: lovenox/pepcid full code Medical - PN: Qual - VTE Deep Vein Thrombosis/Pulmonary Embolism Present on Admission: No
[2018-02-17] MEDS: INSULIN LISPRO 1 UNIT/0.01 ML UNIT SQ SCH ×4 (07:54→21:14)
[2018-02-17] MEDS: FUROSEMIDE 40 MG TABLET PO SCH ×2 (08:37→09:01)
[2018-02-17] MEDS: ENOXAPARIN 40 MG/0.4 ML SYRINGE SQ SCH (08:37)
[2018-02-17] MEDS: LACTOBACILLUS 1 CAPSULE PO SCH ×2 (08:37→21:18)
[2018-02-17] MEDS: DILTIAZEM 120 MG CAP.XL.24H PO SCH ×2 (08:37→21:13)
[2018-02-17] MEDS: FAMOTIDINE 20 MG TABLET PO SCH ×2 (08:37→21:13)
[2018-02-17] MEDS: POTASSIUM CHLORIDE 10 MEQ TABLET PO SCH ×2 (08:37→17:29)
[2018-02-17] MEDS: MONTELUKAST 10 MG TABLET PO SCH (08:37)
[2018-02-17] MEDS: VANCOMYCIN 1,000 MG in 0.9 % SODIUM CHLORIDE 250 ML IV SCH ×2 (08:39→20:09)
[2018-02-17] MEDS: LEVOFLOXACIN 750 MG/150 ML BAG IV SCH (08:40)
[2018-02-17] MEDS ORDERED: ALBUMIN HUMAN 12.5 GM/50 ML BAG IV ONE (08:59)
[2018-02-17] MEDS ORDERED: FUROSEMIDE 40 MG/4 ML VIAL IV ONE (08:59)
[2018-02-17] MEDS: FLUTICASONE/SALMETEROL 500/50 INHALER #14 INH SCH ×2 (09:00→21:14)
--- NOTE | 2018-02-17 11:50 | XRay Report ---
INDICATION: Pneumonia TECHNIQUE: AP chest x-ray,portable semiupright COMPARISON: CT scan dated 02/15/2018. Chest x-rays dated 05/06/2011 and 03/01/2017 FINDINGS:Bibasilar pulmonary parenchymal density. Findings are new since previous chest x-rays. Comparison with CT scan is difficult but the infiltrates in both lower lobes appear essentially unchanged. There is a lucency at the right lung base but I believe this is some aerated lung rather than pneumoperitoneum. There is no pneumothorax. No evidence for significant effusion. No change in heart size or vascularity. No pulmonary edema. Kimberly and mediastinum are negative IMPRESSION: 1. Bibasilar infiltrates 2. No definite interval change since 02/15/2018 Interpreted and Authenticated by: Jose Cruz Scherer 02/17/18
[2018-02-17] MEDS ORDERED: guaiFENesin 600 MG TAB.SR.12H PO ONE (15:15)
[2018-02-17] MEDS: traMADol 50 MG TABLET PO PRN (15:43)
[2018-02-17] MEDS ORDERED: methylPREDNISolone SOD SUCC 125 MG/2 ML VIAL IV SCH (21:00)
[2018-02-17] MEDS: guaiFENesin 600 MG TAB.SR.12H PO SCH (21:13)
[2018-02-17] MEDS: ATORVASTATIN 20 MG TABLET PO SCH (21:18)
[2018-02-18] MEDS: IPRATROPIUM 2.5 ML AMPUL.NEB NEB SCH ×2 (00:32→07:16)
[2018-02-18] MEDS: LEVALBUTEROL 0.63 MG/3 ML AMPUL.NEB NEB SCH ×4 (00:32→18:56)
[2018-02-18] MEDS: traMADol 50 MG TABLET PO PRN ×2 (01:00→15:08)
[2018-02-18] MEDS: PIPERACILLIN SODIUM/TAZOBACTAM 3.375 GM in DEXTROSE 5% IN WATER 50 ML IV SCH ×4 (05:20→23:48)
[2018-02-18] MEDS: 0.9 % SODIUM CHLORIDE 10 ML SYRINGE IV SCH ×4 (05:20→21:25)
[2018-02-18 06:19] LABS: ALT/SGPT 9 U/l (0-40); Albumin 3.2 gm/dL (3.2-5.2); Albumin/Globulin Ratio 1.1 (1.0-2.3); Alkaline Phosphatase 63 U/L (39-117); Bilirubin,Direct < 0.2 mg/dL (0.0-0.3); Blood Urea Nitrogen 25 mg/dl (6-20); Gamma Glutamyl Transpeptidase 50 U/L (5-36); Uric Acid 4.3 mg/dL (2.5-8.0)
--- NOTE | 2018-02-18 07:08 | Internal Med Progress Note ---
Medical - PN: Subj Patient information: Note initiated : 02/18/18 at 7:02 am Service Date, if different from initiated Date: [] Patient: Marissa Bermudez a 57 y/o F admitted on 02/15/18 for shortness of breath. Chief Complaint: [] Interval history: Ms. Bermudez is a 57 year old F Who presents with shortness of breath and productive cough. Patient states that Monday morning she woke up short of breath she had a productive cough that was thin secretions shortness of breath continued to worsen. She is felt chilled had some night sweats no fevers. She has sinus congestion which is common for her. Her symptoms developed rather rapidly and she felt like it could be a pneumonia. She did take an extra dose of her prednisone and continue to use her as needed inhalers. Patient is has severe asthma on multiple inhalers and is on high-dose steroids. She has been on 20-30 mg for some time. She has been on steroids since she was 10. She feels wheezy. Denies chest pain but has little abdominal discomfort on occasion. She did travel to [place] last week. No other travels. Sick contacts she is not aware of anybody in particular but she is around many people each day and suspects she could be exposed by someone. She sees Dr. Angulo and Dr. Jovel. She sees Dr. Garsia for CAD. She did have a cardiac catheterization which showed narrowing. She is allergic to aspirin and she did not want intervention. She is starting on a cholesterol medication. She has chronic peripheral edema GERD steroid myopathy In the ER she was seen and found to have a mildly elevated white blood cell count she is tachypneic and tachycardic and she had no lid pro calcitonin with a chest x-ray that showed infiltrate bibasilar with right side much worse. She is given multiple breathing treatments and put on OxiMax because of hypoxia. She is not on oxygen at home. The lowest she gets at home is 91% she states. 02/16 Feeling much better today. Her coughing is much less productive and less frequent. Her shortness of breath all the present is much improved. Was able to get up in the bed and get to the chair without becoming too short of breath. 02/17 Breathing is about the same as yesterday. Cough continues with less wheezing. Working with physical therapy in the room only. 02/18 Feeling better today. Breathing is better with less dyspnea. Cough is improving. No other new complaints. Review of Systems: denies headache/fever/chills/nausea/vomiting/chest or abdominal pain/diarrhea. Otherwise see above. - Constitutional Vitals: Vital Signs Temp Pulse Resp BP Pulse Ox 97.0 F 89 24 H 117/76 92 02/18/18 04:00 02/18/18 04:00 02/18/18 04:00 02/18/18 04:00 02/18/18 04:00 Period Temp Pulse Resp BP Sys/Baird Pulse Ox Last 24 Hr 97.0 F-99.6 F 89-116 20-24 117-129/74-90 91-98 Intake and Output 02/17/18 02/18/18 02/18/18 21:59 05:59 13:59 Intake Total 200 / 200 530 / 530 Output Total 350 / 350 0 / 0 650 / 650 Balance -150 / -150 530 / 530 -650 / -650 Weight 61.235 kg Intake & Output: Intake & Output 02/17/18 02/18/18 02/18/18 21:59 05:59 13:59 Intake Total 200 / 200 530 / 530 Output Total 350 / 350 0 / 0 650 / 650 Balance -150 / -150 530 / 530 -650 / -650 Weight 61.235 kg Intake: IV 50 / 50 50 / 50 Zosyn 3.375 gm In Dextrose 5% 50 / 50 50 / 50 in Water 50 ml @ 100 mls/hr IV Q6H [facility] Rx#:[id number] Oral 150 / 150 480 / 480 Output: Void Amount 350 / 350 0 / 0 650 / 650 Other: Meal Dinner Percent of Meal Consumed 75% # Voids 1 Exam: General: Alert, Awake, No acute Distress Eyes/N/T: EOMI, Head/Neck: neck supple, CV: RRR, No murmurs, normal s1/s2 Pulm: better aeration, mild exp wheezes, decreasing b/l rhonchi Abd: soft, nontender, +BS x4, protuberant Ext: no clubbing/cyanosis, 1+ bilateral lower extremity edema improved Neuro: Alert, no focal deficits, moves all extremities, Skin: warm/dry, smith facies, skin thinning, facial erythema Medical - PN: Obj Da - Labs CBC & Chem 7: 02/16/18 03:44 02/18/18 03:39 Labs: Abnormal Lab Results 02/18/18 02/17/18 02/16/18 03:39 03:29 03:44 WBC RBC Hgb Hct RDW Gran % Lymph % (Auto) Gran # Lymph # (Auto) D-Dimer Potassium Anion Gap BUN 25 H 22 H Glucose 178 H 185 H Hemoglobin A1c 6.8 H Phosphorus 2.6 L GGT 50 H Lactate Dehydrogenase 263 H NT-Pro-B Natriuret Pep Albumin Albumin/Globulin Ratio Triglycerides 201 H 02/16/18 02/16/18 02/15/18 03:44 03:44 18:00 WBC RBC 3.95 L Hgb 11.4 L Hct 34.1 L RDW 16.5 H Gran % 95.3 H Lymph % (Auto) 1.4 L Gran # 9.9 H Lymph # (Auto) 0.1 L D-Dimer Potassium 3.2 L Anion Gap 18.0 H BUN Glucose 191 H 148 H Hemoglobin A1c Phosphorus GGT 45 H Lactate Dehydrogenase NT-Pro-B Natriuret Pep 409.2 H Albumin 3.1 L Albumin/Globulin Ratio 0.9 L Triglycerides 181 H 02/15/18 02/15/18 18:00 18:00 WBC 13.1 H RBC Hgb Hct RDW 16.6 H Gran % 92.1 H Lymph % (Auto) 4.0 L Gran # 12.1 H Lymph # (Auto) 0.5 L D-Dimer 1.07 H Potassium Anion Gap BUN Glucose Hemoglobin A1c Phosphorus GGT Lactate Dehydrogenase NT-Pro-B Natriuret Pep Albumin Albumin/Globulin Ratio Triglycerides Meds: Medications Acetaminophen (Tylenol) 650 mg PO Q6HP PRN PRN Reason: PAIN/FEVER > 101 Last Admin: 02/16/18 23:50 Dose: 650 mg Albuterol/Ipratropium (Duoneb) 3 ml NEB Q6HRT PRN PRN Reason: Bronchospasm Atorvastatin Calcium (Lipitor) 20 mg PO HS ALVIN Last Admin: 02/17/18 21:18 Dose: 20 mg Dextrose (Dextrose 50%) 0 ml IV UD PRN PRN Reason: Hypoglycemia Diagnostic Test (Pha) (Accu-Chek) 1 each FS ACHS ALVIN Last Admin: 02/17/18 21:14 Dose: 1 each Diltiazem HCl (Cardizem Cd) 120 mg PO BID [facility] Last Admin: 02/17/18 21:13 Dose: 120 mg Enoxaparin Sodium (Lovenox) 40 mg SQ DAILY [facility] Last Admin: 02/17/18 08:37 Dose: 40 mg Famotidine (Pepcid) 20 mg PO BID [facility] Last Admin: 02/17/18 21:13 Dose: 20 mg Furosemide (Lasix) 40 mg PO QDAY [facility] Last Admin: 02/17/18 09:01 Dose: Not Given Glucose (Insta-Glucose) 15 gm PO PRN PRN PRN Reason: Hypoglycemia Guaifenesin (Mucinex) 600 mg PO BID [facility] Last Admin: 02/17/18 21:13 Dose: 600 mg Levofloxacin (Levaquin) 750 mg in 150 mls @ 100 mls/hr IV Q24H [facility] Last Admin: 02/17/18 08:40 Dose: 100 mls/hr Piperacillin Sod/Tazobactam (Sod 3.375 gm/ Dextrose) 50 mls @ 100 mls/hr IV Q6H [facility] Last Admin: 02/18/18 05:20 Dose: 100 mls/hr Vancomycin HCl 1,000 mg/ (Sodium Chloride) 250 mls @ 250 mls/hr IV Q12H [facility] Last Admin: 02/17/18 20:09 Dose: 250 mls/hr Insulin Human Lispro (Humalog) 0 unit SQ ACHS [facility]; Protocol Last Admin: 02/17/18 21:14 Dose: 6 unit Ipratropium [place] (Atrovent) 2.5 ml NEB Q6HRT [facility] Last Admin: 02/18/18 00:32 Dose: 2.5 ml Lactobacillus Rhamnosus (Culturelle) 1 cap PO BID [facility] Last Admin: 02/17/18 21:18 Dose: 1 cap Levalbuterol HCl (Xopenex) 0.63 mg NEB Q6HRT [facility] Last Admin: 02/18/18 00:32 Dose: 0.63 mg Methylprednisolone Sodium Succinate (Solu-Medrol) 40 mg IV BID [facility] Last Admin: 02/17/18 21:18 Dose: 40 mg Montelukast Sodium (Singular) 10 mg PO QDAY [facility] Last Admin: 02/17/18 08:37 Dose: 10 mg Nitroglycerin (Nitrostat) 0.4 mg SL Q5M PRN PRN Reason: Chest Pain Ondansetron HCl (Zofran) 4 mg IV Q4HP PRN PRN Reason: Nausea And Vomiting Roflumilast [ Daliresp] 500 Mcg Tab 1 dose PO DAILY [facility] Last Admin: 02/17/18 08:39 Dose: 1 dose Potassium Chloride (Kdur) 10 meq PO BIDCC [facility] Last Admin: 02/17/18 17:29 Dose: 10 meq Prochlorperazine Maleate (Compazine) 12.5 mg UT Q12HP PRN PRN Reason: Nausea And Vomiting Promethazine HCl (Phenergan) 12.5 mg PO Q6HP PRN PRN Reason: Nausea And Vomiting Fluticasone/Salmeterol (Advair 500-50 Diskus) 1 puff INH BID [facility] Last Admin: 02/17/18 21:14 Dose: 1 puff Sodium Chloride (Saline Flush) 10 ml IV Q8 [facility] Last Admin: 02/18/18 05:20 Dose: 10 ml Tramadol HCl (Ultram) 50 mg PO Q4-6HP PRN PRN Reason: Pain Last Admin: 02/18/18 01:00 Dose: 50 mg Vancomycin HCl (Vancomycin Per Pharmacy) 1 order IV UD [facility] Medical - PN: A/P - Time Spent With Patient Total time spent is greater than 50% in coordination of care (as documented) at patient's floor/unit and/or counseling patient: - Narrative A/P Narrative: A: *Acute hypoxic respiratory failure: -down to 2L oxymask/NC from Nonrebreather on admit *Pneumonia in immunosuppressed patient: -PCT/leukocytosis improving -Sputum stain with GPC in pairs and a few GN diplococci, no fungal elements *Asthma exacerbation: Follows Dr. Angulo in [facility] -PEF 140 (36% predicted) on admit *Sepsis: *Immunosuppression secondary to chronic prednisone use for asthma: She states she has been on steroids since she was 10 -Currently on 25-30 mg daily *CAD: Has not had intervention. Follows with Dr. 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
[2018-02-18] MEDS: INSULIN LISPRO 1 UNIT/0.01 ML UNIT SQ SCH ×4 (07:30→21:24)
[2018-02-18] MEDS: TIOTROPIUM BROMIDE INH SCH (09:00)
[2018-02-18] MEDS: FUROSEMIDE 40 MG TABLET PO SCH (09:50)
[2018-02-18] MEDS: LACTOBACILLUS 1 CAPSULE PO SCH ×2 (09:50→21:31)
[2018-02-18] MEDS: guaiFENesin 600 MG TAB.SR.12H PO SCH ×2 (09:51→21:31)
[2018-02-18] MEDS: methylPREDNISolone SOD SUCC 125 MG/2 ML VIAL IV SCH ×2 (09:52→21:24)
[2018-02-18] MEDS: POTASSIUM CHLORIDE 10 MEQ TABLET PO SCH ×2 (09:55→18:08)
[2018-02-18] MEDS: FAMOTIDINE 20 MG TABLET PO SCH ×2 (09:55→21:31)
[2018-02-18] MEDS: DILTIAZEM 120 MG CAP.XL.24H PO SCH ×2 (09:55→21:31)
[2018-02-18] MEDS: MONTELUKAST 10 MG TABLET PO SCH (09:55)
[2018-02-18] MEDS: LEVOFLOXACIN 750 MG/150 ML BAG IV SCH (09:56)
[2018-02-18] MEDS: FLUTICASONE/SALMETEROL 500/50 INHALER #14 INH SCH ×2 (09:57→21:20)
[2018-02-18] MEDS: ENOXAPARIN 40 MG/0.4 ML SYRINGE SQ SCH (09:57)
[2018-02-18] MEDS: ATORVASTATIN 20 MG TABLET PO SCH (21:31)
[2018-02-19] MEDS: LEVALBUTEROL 0.63 MG/3 ML AMPUL.NEB NEB SCH ×4 (00:25→19:17)
[2018-02-19] MEDS: 0.9 % SODIUM CHLORIDE 10 ML SYRINGE IV SCH ×5 (05:18→21:37)
[2018-02-19] MEDS: PIPERACILLIN SODIUM/TAZOBACTAM 3.375 GM in DEXTROSE 5% IN WATER 50 ML IV SCH ×3 (05:18→17:31)
[2018-02-19 05:32] LABS: Basophils # (Auto) 0 K/mcL (0.0-0.3); Basophils % (Auto) 0 % (0.0-2.0); Eosinophils # (Auto) 0 K/mcL (0.0-0.7); Eosinophils % (Auto) 0 % (0.0-7.0); Granulocytes % (Auto) 94.6 % (38.0-78.0); Lymphocytes # (Auto) 0.6 K/mcL (1.5-4.8); Lymphocytes % (Auto) 3.8 % (15.5-49.0); Mean Cell Volume 86.7 fL (80.0-100.0); Mean Corpuscular HGB Conc 32.5 g/dL (31.0-36.0); Monocytes # (Auto) 0.3 K/mcL (0.1-0.9); Monocytes % (Auto) 1.6 % (1.0-12.0); Platelet Count 365 K/mcL (140-440); RBC 4.36 M/mcL (4.00-5.20); Red Cell Distribution Width 16.8 % (11.5-14.5)
[2018-02-19 05:49] LABS: ALT/SGPT 10 U/l (0-40); Albumin 3.1 gm/dL (3.2-5.2); Albumin/Globulin Ratio 1.1 (1.0-2.3); Alkaline Phosphatase 56 U/L (39-117); Bilirubin,Direct < 0.2 mg/dL (0.0-0.3); Blood Urea Nitrogen 27 mg/dl (6-20); Gamma Glutamyl Transpeptidase 57 U/L (5-36); Uric Acid 4.8 mg/dL (2.5-8.0)
[2018-02-19] MEDS: INSULIN LISPRO 1 UNIT/0.01 ML UNIT SQ SCH ×4 (07:58→20:52)
[2018-02-19] MEDS: LACTOBACILLUS 1 CAPSULE PO SCH ×2 (09:06→20:52)
[2018-02-19] MEDS: POTASSIUM CHLORIDE 10 MEQ TABLET PO SCH ×2 (09:06→17:33)
[2018-02-19] MEDS: FAMOTIDINE 20 MG TABLET PO SCH ×2 (09:06→20:52)
[2018-02-19] MEDS: FUROSEMIDE 40 MG TABLET PO SCH (09:06)
[2018-02-19] MEDS: MONTELUKAST 10 MG TABLET PO SCH (09:06)
[2018-02-19] MEDS: guaiFENesin 600 MG TAB.SR.12H PO SCH ×2 (09:06→20:52)
[2018-02-19] MEDS: DILTIAZEM 120 MG CAP.XL.24H PO SCH ×2 (09:06→20:53)
[2018-02-19] MEDS: FLUTICASONE/SALMETEROL 500/50 INHALER #14 INH SCH ×2 (09:07→20:53)
[2018-02-19] MEDS: LEVOFLOXACIN 750 MG/150 ML BAG IV SCH (09:08)
[2018-02-19] MEDS: ENOXAPARIN 40 MG/0.4 ML SYRINGE SQ SCH (09:08)
[2018-02-19] MEDS: TIOTROPIUM BROMIDE INH SCH (09:26)
[2018-02-19] MEDS ORDERED: POTASSIUM CHLORIDE 40 MEQ in DEXTROSE 5% IN WATER 500 ML IV ONE (10:00)
[2018-02-19] MEDS: methylPREDNISolone SOD SUCC 40 MG/ML VIAL IV SCH ×2 (10:34→20:54)
[2018-02-19] MEDS: methylPREDNISolone SOD SUCC 125 MG/2 ML VIAL IV SCH (11:44)
--- NOTE | 2018-02-19 16:16 | Internal Med Progress Note ---
Medical - PN: Subj Patient information: Note initiated : 02/19/18 at 4:13 pm Service Date, if different from initiated Date: [] Patient: Marissa Bermudez a 57 y/o F admitted on 02/15/18 for shortness of breath. Chief Complaint: [] Interval history: Ms. Bermudez is a 57 year old F Who presents with shortness of breath and productive cough. Patient states that Monday morning she woke up short of breath she had a productive cough that was thin secretions shortness of breath continued to worsen. She is felt chilled had some night sweats no fevers. She has sinus congestion which is common for her. Her symptoms developed rather rapidly and she felt like it could be a pneumonia. She did take an extra dose of her prednisone and continue to use her as needed inhalers. Patient is has severe asthma on multiple inhalers and is on high-dose steroids. She has been on 20-30 mg for some time. She has been on steroids since she was 10. She feels wheezy. Denies chest pain but has little abdominal discomfort on occasion. She did travel to [place] last week. No other travels. Sick contacts she is not aware of anybody in particular but she is around many people each day and suspects she could be exposed by someone. She sees Dr. Angulo and Dr. Jovel. She sees Dr. Garsia for CAD. She did have a cardiac catheterization which showed narrowing. She is allergic to aspirin and she did not want intervention. She is starting on a cholesterol medication. She has chronic peripheral edema GERD steroid myopathy In the ER she was seen and found to have a mildly elevated white blood cell count she is tachypneic and tachycardic and she had no lid pro calcitonin with a chest x-ray that showed infiltrate bibasilar with right side much worse. She is given multiple breathing treatments and put on OxiMax because of hypoxia. She is not on oxygen at home. The lowest she gets at home is 91% she states. 02/16 Feeling much better today. Her coughing is much less productive and less frequent. Her shortness of breath all the present is much improved. Was able to get up in the bed and get to the chair without becoming too short of breath. 02/17 Breathing is about the same as yesterday. Cough continues with less wheezing. Working with physical therapy in the room only. 02/18 Feeling better today. Breathing is better with less dyspnea. Cough is improving. No other new complaints. 02/19 Patient seen and examined, no acute overnight events. Feeling better but breathing is still not at baseline. She still feels significant weakness and shortness of breath with minimal activity. She attributes her weakness to present with activity as well as steroid-induced myopathy. Labs today are worse leukocytosis is worse more than 10% bands noted. Patient however clinically is getting better pro calcitonin is trending down. Patient is on steroids. Induce sputum culture sent for PCP pneumonia evaluation Pertinent ROS: Denies headache, dizziness Denies chest pain, palpitations Improving shortness of breath and cough Denies abdominal pain, nausea or vomiting. - Constitutional Vitals: Vital Signs Temp Pulse Resp BP Pulse Ox 96.9 F L 101 H 16 121/87 95 02/19/18 16:00 02/19/18 16:00 02/19/18 16:00 02/19/18 16:00 02/19/18 16:00 Period Temp Pulse Resp BP Sys/Baird Pulse Ox Last 24 Hr 96.9 F-98.1 F 96-108 16- 121-139/82-92 91-99 Intake and Output 02/19/18 02/19/18 02/19/18 05:59 13:59 21:59 Intake Total 710 / 710 612 / 612 Output Total 350 / 350 375 / 375 450 / 450 Balance 360 / 360 237 / 237 -450 / -450 Intake & Output: Intake & Output 02/19/18 02/19/18 02/19/18 05:59 13:59 21:59 Intake Total 710 / 710 612 / 612 Output Total 350 / 350 375 / 375 450 / 450 Balance 360 / 360 237 / 237 -450 / -450 Intake: IV 50 / 50 252 / 252 Zosyn 3.375 gm In Dextrose 5% 50 / 50 50 / 50 in Water 50 ml @ 100 mls/hr IV Q6H [facility] Rx#:[id number] Potassium Chloride 40 Meq In 52 / 52 Dextrose 5% in Water 500 ml @ 130 mls/hr IV ONCE ONE Rx#: [id number] Oral 660 / 660 360 / 360 Output: Urine Catheter Amount 150 / 150 Void Amount 350 / 350 225 / 225 450 / 450 Other: Meal Breakfast Percent of Meal Consumed 100% Feeding Ability Independent Urine Appearance Clear Urine Color Bright Yellow Pale Stool Size Small Stool Color Brown Stool Consistency Soft # Voids 1 # Bowel Movements 1 1 Exam: Constitutional; Afebrile, cooperative, alert, not in distress. Eyes- No icterus, , No periorbital swelling Ears- Ext ear normal, hearing normal to conversation. Neck- Midline trachea, supple Respiratory system: Air Entry equal on both sides, prolonged expiratory phase, mild expiratory wheezing, patient speaking full sentences no accessory muscle use CVS- Rate rhythm regular, S1,S2 heard, no gallop, no rub. Abdomen- Soft nontender abdomen, no organomegaly, no tenderness, no guarding or rigidity, [employer]- AOOx3, moving all extremities, no gross focal deficit noted. Medical - PN: Obj Da - Labs CBC & Chem 7: 02/19/18 03:36 02/19/18 03:36 Labs: Abnormal Lab Results 02/19/18 02/19/18 02/18/18 03:36 03:36 06:50 WBC 15.8 H RDW 16.8 H Gran % 94.6 H Lymph % (Auto) 3.8 L Gran # 14.9 H Lymph # (Auto) 0.6 L BUN 27 H Glucose 177 H Phosphorus 2.5 L GGT 57 H Lactate Dehydrogenase Total Protein 5.8 L Albumin 3.1 L Triglycerides 310 H Vancomycin Trough 20.8 H* 02/18/18 02/17/18 03:39 03:29 WBC RDW Gran % Lymph % (Auto) Gran # Lymph # (Auto) BUN 25 H 22 H Glucose 178 H 185 H Phosphorus 2.6 L GGT 50 H Lactate Dehydrogenase 263 H Total Protein Albumin Triglycerides 201 H Vancomycin Trough Meds: Medications Acetaminophen (Tylenol) 650 mg PO Q6HP PRN PRN Reason: PAIN/FEVER > 101 Last Admin: 02/16/18 23:50 Dose: 650 mg Albuterol/Ipratropium (Duoneb) 3 ml NEB Q6HRT PRN PRN Reason: Bronchospasm Atorvastatin Calcium (Lipitor) 20 mg PO HS ALVIN Last Admin: 02/18/18 21:31 Dose: 20 mg Dextrose (Dextrose 50%) 0 ml IV UD PRN PRN Reason: Hypoglycemia Diagnostic Test (Pha) (Accu-Chek) 1 each FS ACHS ALVIN Last Admin: 02/19/18 12:06 Dose: 1 each Diltiazem HCl (Cardizem Cd) 120 mg PO BID [facility] Last Admin: 02/19/18 09:06 Dose: 120 mg Enoxaparin Sodium (Lovenox) 40 mg SQ DAILY [facility] Last Admin: 02/19/18 09:08 Dose: 40 mg Famotidine (Pepcid) 20 mg PO BID [facility] Last Admin: 02/19/18 09:06 Dose: 20 mg Furosemide (Lasix) 40 mg PO QDAY [facility] Last Admin: 02/19/18 09:06 Dose: 40 mg Glucose (Insta-Glucose) 15 gm PO PRN PRN PRN Reason: Hypoglycemia Guaifenesin (Mucinex) 600 mg PO BID [facility] Last Admin: 02/19/18 09:06 Dose: 600 mg Levofloxacin (Levaquin) 750 mg in 150 mls @ 100 mls/hr IV Q24H [facility] Last Infusion: 02/19/18 10:38 Dose: Infused Piperacillin Sod/Tazobactam (Sod 3.375 gm/ Dextrose) 50 mls @ 100 mls/hr IV Q6H [facility] Last Admin: 02/19/18 12:08 Dose: 100 mls/hr Insulin Human Lispro (Humalog) 0 unit SQ ACHS [facility]; Protocol Last Admin: 02/19/18 12:11 Dose: 9 unit Lactobacillus Rhamnosus (Culturelle) 1 cap PO BID [facility] Last Admin: 02/19/18 09:06 Dose: 1 cap Levalbuterol HCl (Xopenex) 0.63 mg NEB Q6HRT [facility] Last Admin: 02/19/18 13:20 Dose: 0.63 mg Methylprednisolone Sodium Succinate (Solu-Medrol) 20 mg IV BID [facility] Last Admin: 02/19/18 10:34 Dose: 20 mg Montelukast Sodium (Singular) 10 mg PO QDAY [facility] Last Admin: 02/19/18 09:06 Dose: 10 mg Nitroglycerin (Nitrostat) 0.4 mg SL Q5M PRN PRN Reason: Chest Pain Ondansetron HCl (Zofran) 4 mg IV Q4HP PRN PRN Reason: Nausea And Vomiting Roflumilast [ Daliresp] 500 Mcg Tab 1 dose PO DAILY [facility] Last Admin: 02/19/18 09:07 Dose: 1 dose Tiotropium [place] [ Spiriva Respimat] 2. 5 Mcg/Actuation 2 dose INH DAILY [facility] Last Admin: 02/19/18 09:26 Dose: 2 dose Potassium Chloride (Kdur) 10 meq PO BIDCC [facility] Last Admin: 02/19/18 09:06 Dose: 10 meq Prochlorperazine Maleate (Compazine) 12.5 mg ID Q12HP PRN PRN Reason: Nausea And Vomiting Promethazine HCl (Phenergan) 12.5 mg PO Q6HP PRN PRN Reason: Nausea And Vomiting Fluticasone/Salmeterol (Advair 500-50 Diskus) 1 puff INH BID [facility] Last Admin: 02/19/18 09:07 Dose: 1 puff Sodium Chloride (Saline Flush) 10 ml IV Q8 [facility] Last Admin: 02/19/18 10:34 Dose: 10 ml Tramadol HCl (Ultram) 50 mg PO Q4-6HP PRN PRN Reason: Pain Last Admin: 02/18/18 15:08 Dose: 50 mg Medical - PN: A/P - Time Spent With Patient Total time spent is greater than 50% in coordination of care (as documented) at patient's floor/unit and/or counseling patient: - Narrative A/P Narrative: A: *Acute hypoxic respiratory failure: -down to 1-0.5L oxymask/NC from Nonrebreather on admit -wean off steroids as toleratrated *Pneumonia in immunosuppressed patient: -PCT/leukocytosis improving -Sputum stain with GPC in pairs and a few GN diplococci, no fungal elements -sputum sent for PCP evaluation given h/o fci high dose steroid use. -Continue IV antibiotics, microbiology neg so far. *Asthma exacerbation: Follows Dr. 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 *CAD: Has not had intervention. Follows with Dr. 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 *Peripheral edema: improved with lasix/albumin combo Diabetic Diet Hep SQ dvt prophylaxis. Medical - PN: Qual - VTE Deep Vein Thrombosis/Pulmonary Embolism Present on Admission: No
[2018-02-19] MEDS: ATORVASTATIN 20 MG TABLET PO SCH (20:52)
[2018-02-20] MEDS: LEVALBUTEROL 0.63 MG/3 ML AMPUL.NEB NEB SCH ×3 (00:44→13:29)
[2018-02-20 05:52] LABS: Basophils # (Auto) 0 K/mcL (0.0-0.3); Basophils % (Auto) 0 % (0.0-2.0); Eosinophils # (Auto) 0 K/mcL (0.0-0.7); Eosinophils % (Auto) 0 % (0.0-7.0); Granulocytes % (Auto) 92.5 % (38.0-78.0); Lymphocytes # (Auto) 0.7 K/mcL (1.5-4.8); Lymphocytes % (Auto) 4.6 % (15.5-49.0); Mean Cell Volume 85.8 fL (80.0-100.0); Mean Corpuscular HGB Conc 33.4 g/dL (31.0-36.0); Monocytes # (Auto) 0.4 K/mcL (0.1-0.9); Monocytes % (Auto) 2.9 % (1.0-12.0); Platelet Count 354 K/mcL (140-440); RBC 4.37 M/mcL (4.00-5.20)
[2018-02-20] MEDS: PIPERACILLIN SODIUM/TAZOBACTAM 3.375 GM in DEXTROSE 5% IN WATER 50 ML IV SCH ×3 (05:53→12:09)
[2018-02-20] MEDS: 0.9 % SODIUM CHLORIDE 10 ML SYRINGE IV SCH ×2 (05:53→12:10)
[2018-02-20 06:04] LABS: ALT/SGPT 8 U/l (0-40); Albumin 3.3 gm/dL (3.2-5.2); Albumin/Globulin Ratio 1.3 (1.0-2.3); Alkaline Phosphatase 48 U/L (39-117); Bilirubin,Direct < 0.2 mg/dL (0.0-0.3); Blood Urea Nitrogen 25 mg/dl (6-20); Gamma Glutamyl Transpeptidase 60 U/L (5-36); Uric Acid 4.3 mg/dL (2.5-8.0)
[2018-02-20] MEDS: INSULIN LISPRO 1 UNIT/0.01 ML UNIT SQ SCH ×2 (07:11→12:09)
[2018-02-20] MEDS ORDERED: predniSONE 20 MG TABLET PO SCH (08:00)
[2018-02-20] MEDS: LEVOFLOXACIN 750 MG/150 ML BAG IV SCH (08:08)
[2018-02-20] MEDS: POTASSIUM CHLORIDE 10 MEQ TABLET PO SCH (08:08)
[2018-02-20] MEDS: ENOXAPARIN 40 MG/0.4 ML SYRINGE SQ SCH (08:08)
[2018-02-20] MEDS: FAMOTIDINE 20 MG TABLET PO SCH (08:09)
[2018-02-20] MEDS: DILTIAZEM 120 MG CAP.XL.24H PO SCH (08:09)
[2018-02-20] MEDS: guaiFENesin 600 MG TAB.SR.12H PO SCH (08:09)
[2018-02-20] MEDS: MONTELUKAST 10 MG TABLET PO SCH (08:09)
[2018-02-20] MEDS: FLUTICASONE/SALMETEROL 500/50 INHALER #14 INH SCH (08:12)
[2018-02-20] MEDS: TIOTROPIUM BROMIDE INH SCH (08:12)
[2018-02-20] MEDS: FUROSEMIDE 40 MG TABLET PO SCH (08:15)
[2018-02-20] MEDS: LACTOBACILLUS 1 CAPSULE PO SCH (08:15)
--- NOTE | 2018-02-20 11:37 | Discharge Summary ---
Medical - DS: Prov Patient information: Note initiated : 02/20/18 at 11:30 am Service Date, if different from initiated Date: [] Patient: Marissa Bermudez 57 y/o F admitted on 02/15/18 for shortness of breath. Chief Complaint: [] Date of admission: 02/15/18 22:18 Discharge date: 02/20/18 Primary care physician: Megan Zhang Consults: 02/15/18 Consult to Physician [CONS] Stat Comment: Consulting Provider: Morris Pitts Reason For Exam: Physician to Consult Discharging clinician: Nick Ruby Medical - DS: Meds - Discharge Medications Prescriptions: Levofloxacin 750 mg PO DAILY #3 tab predniSONE [Prednisone] [facility] [place] [facility] tab Sulfamethoxazole/Trimethoprim [Sulfamethoxazole-Tmp Ss Tablet] 1 each PO DAILY # 30 tab Active and Home Medications: Home Medications fluticasone 220 mcg/actuation HFA aerosol inhaler See Label Instructions INHALATION .COMPLEX 09/15/16 [History Confirmed 02/15/18 Last Taken Unknown] fluticasone 250 mcg-salmeterol 50 mcg/dose blistr powdr for inhalation See Label Instructions INHALATION .COMPLEX 09/15/16 [History Confirmed 02/15/18 Last Taken Unknown] levalbuterol HFA 45 mcg/actuation aerosol inhaler See Label Instructions INHALATION .COMPLEX 09/15/16 [History Confirmed 02/15/18 Last Taken Unknown] montelukast 10 mg tablet 10 mg PO QDAY tab 09/15/16 [History Confirmed Last Taken Unknown] omeprazole 20 mg capsule,delayed release 20 mg PO QDAY cap 09/15/16 [History Confirmed 02/15/18 Last Taken Unknown] roflumilast 500 mcg tablet 500 mcg PO QDAY 09/15/16 [History Confirmed 02/15/18 Last Taken Unknown] levalbuterol 0.63 mg/3 mL solution for nebulization 1.25 mg INHALATION BID PRN ml 10/11/16 [History Confirmed 02/15/18 Last Taken Unknown] Bacillus coagulans 10 billion cell capsule,delayed release 1 tab PO QDAY each 12/02/16 [History Confirmed 02/15/18 Last Taken Unknown] mepolizumab 100 mg subcutaneous solution 100 mg SUB-Q Q4W 12/02/16 [History Confirmed 02/15/18 Last Taken Unknown] beclomethasone dipropionate 40 mcg/actuation nasal HFA inhaler 2 inh INTRANASAL QDAY 04/10/17 [History Confirmed 02/15/18 Last Taken Unknown] prednisone 50 mg tablet 25 mg PO DAILY tab 08/15/17 [History Confirmed Last Taken Unknown] diltiazem ER 120 mg tablet,extended release 24 hr 120 mg PO BID #90 tab [Rx Confirmed 02/15/18 Last Taken Unknown] tiotropium bromide 2.5 mcg/actuation mist for inhalation 2 puff INHALATION QDAY #4 g 02/02/18 [Rx Confirmed 02/15/18 Last Taken Unknown] coenzyme Q10 200 mg capsule 200 mg PO QDAY #30 cap 02/05/18 [Rx Confirmed Last Taken Unknown] furosemide 40 mg tablet 40 mg PO QDAY #30 tab 02/05/18 [Rx Confirmed 02/15/18 Last Taken Unknown] isosorbide dinitrate 30 mg tablet 30 mg PO QDAY #30 tab 02/05/18 [Rx Confirmed 02/15/18 Last Taken Unknown] potassium chloride ER 10 mEq capsule,extended release 10 meq PO BID #60 cap 12/14 [Rx Confirmed 02/15/18 Last Taken Unknown] rivas ling 1,500 mg PO BID 02/15/18 [History Confirmed 02/15/18 Last Taken Unknown] Medical - DS: Hosp Hospital course: Ms. Bermudez is a 57 year old F Who presents with shortness of breath and productive cough. Patient states that Monday morning she woke up short of breath she had a productive cough that was thin secretions shortness of breath continued to worsen. She is felt chilled had some night sweats no fevers. She has sinus congestion which is common for her. Her symptoms developed rather rapidly and she felt like it could be a pneumonia. She did take an extra dose of her prednisone and continue to use her as needed inhalers. Patient is has severe asthma on multiple inhalers and is on high-dose steroids. She has been on 20-30 mg for some time. She has been on steroids since she was 10. She feels wheezy. Denies chest pain but has little abdominal discomfort on occasion. She did travel to [place] last week. No other travels. Sick contacts she is not aware of anybody in particular but she is around many people each day and suspects she could be exposed by someone. She sees Dr. Angulo and Dr. Jovel. She sees Dr. Garsia for CAD. She did have a cardiac catheterization which showed narrowing. She is allergic to aspirin and she did not want intervention. She is starting on a cholesterol medication. She has chronic peripheral edema GERD steroid myopathy In the ER she was seen and found to have a mildly elevated white blood cell count she is tachypneic and tachycardic and she had no lid pro calcitonin with a chest x-ray that showed infiltrate bibasilar with right side much worse. She is given multiple breathing treatments and put on OxiMax because of hypoxia. She is not on oxygen at home. The lowest she gets at home is 91% she states. 02/16 Feeling much better today. Her coughing is much less productive and less frequent. Her shortness of breath all the present is much improved. Was able to get up in the bed and get to the chair without becoming too short of breath. 02/17 Breathing is about the same as yesterday. Cough continues with less wheezing. Working with physical therapy in the room only. 02/18 Feeling better today. Breathing is better with less dyspnea. Cough is improving. No other new complaints. 02/19 Patient seen and examined, no acute overnight events. Feeling better but breathing is still not at baseline. She still feels significant weakness and shortness of breath with minimal activity. She attributes her weakness to present with activity as well as steroid-induced myopathy. Labs today are worse leukocytosis is worse more than 10% bands noted. Patient however clinically is getting better pro calcitonin is trending down. Patient is on steroids. Induce sputum culture sent for PCP pneumonia evaluation 02/20 Pt seen examined, feels much better, off oxygen, on room air, had 5 days of abx , cultures are neg, PCP negative. X ray done today shows persistent pna, but clinically pt is much better, wbc trending down Pt feels she can go home. Will d/c home with oral antibiotics and home health. In Summary A: *Acute hypoxic respiratory failure: Resolved, back to room air at the time of discharge *Pneumonia in immunosuppressed patient: Responded well clinically, 5 days of IV ABX, microbiology neg, will d/c on oral levofloxacin for 3 more doses. *Asthma exacerbation: Follows Dr. Angulo in [facility]: Patient on high does of steroids at baseline, to continue home inhaler/bronchodialator regime. Of concern is the very high does of steroid which the patient has been for a long time. I do not see any PCP pneumonia prophylaxis, which would be indicated in this case. I am starting the patient on bactrim one tab SS daily for now. Advised to talk wit her provider who is prescribing steroids to see if this can be weaned off. She is also educated to take calcium and vit d supplements. *Sepsis: -resolved Discharge diagnosis: Pneumonia, ASthma exacerbation - Time Spent with Patient Total time spent providing and/or coordinating discharge services: Greater than 30 minutes Medical - DS: Exam - Constitutional Vitals: Vital Signs Temp Pulse Pulse Resp BP Pulse Ox 02/20/18 08:00 98 F 90 19 117/78 95 02/20/18 07:22 100 H 20 93 02/20/18 07:20 100 H 20 02/20/18 04:00 98.0 F 85 20 117/68 90 02/20/18 00:00 82 22 94 02/19/18 20:00 85 20 122/78 94 02/19/18 19:20 103 H 18 02/19/18 17:41 94 02/19/18 16:45 100 02/19/18 16:00 96.9 F L 101 H 16 121/87 95 02/19/18 13:25 108 H 20 02/19/18 12:15 98 02/19/18 11:48 97.4 F 106 H 16 139/92 97 Intake and Output 02/19/18 02/20/18 02/20/18 21:59 05:59 13:59 Intake Total 518 / 518 630 / 630 200 / 200 Output Total 600 / 600 350 / 350 Balance -82 / -82 280 / 280 200 / 200 Intake: IV 518 / 518 50 / 50 200 / 200 Zosyn 3.375 gm In Dextrose 5% 50 / 50 50 / 50 50 / 50 in Water 50 ml @ 100 mls/hr IV Q6H [facility] Rx#:[id number] Oral 580 / 580 Output: Void Amount 600 / 600 350 / 350 Other: Urine Appearance Clear Clear Urine Color Pale Pale Urine Odor Normal # Voids 1 1 # Bowel Movements 1 Weight 132 lb Additional comments: Constitutional; Afebrile, cooperative, alert, not in distress. Respiratory system: Air Entry equal on both sides, No crackles or wheezing, no rhonchi. CVS- Rate rhythm regular, S1,S2 heard, no gallop, no rub. Abdomen- Soft nontender abdomen, no organomegaly, no tenderness, no guarding or rigidity, [employer]- AOOx3, moving all extremities, no gross focal deficit noted. Medical - DS: Data Labs on day of discharge: Labs from last 24 hours 02/20/18 02/20/18 03:40 03:40 WBC 14.8 H RBC 4.37 Hgb 12.5 Hct 37.5 MCV 85.8 MCH 28.7 MCHC 33.4 RDW 17.0 H Plt Count 354 MPV 7.4 Gran % 92.5 H Lymph % (Auto) 4.6 L Crook % (Auto) 2.9 Eos % (Auto) 0 Baso % (Auto) 0 Gran # 13.7 H Lymph # (Auto) 0.7 L Crook # (Auto) 0.4 Eos # (Auto) 0 Baso # (Auto) 0 Sodium 142 Potassium 3.6 Chloride 105 Carbon Dioxide 24 Anion Gap 13.0 BUN 25 H Creatinine 0.7 GFR Calculation 95 Glucose 161 H Uric Acid 4.3 Calcium 9.2 Phosphorus 2.9 Magnesium 2.3 Total Bilirubin 0.2 Direct Bilirubin < 0.2 GGT 60 H AST 10 ALT 8 Alkaline Phosphatase 48 Lactate Dehydrogenase 265 H Total Protein 5.8 L Albumin 3.3 Globulin 2.5 Albumin/Globulin Ratio 1.3 Triglycerides 244 H Preliminary micro results at discharge 02/15/18 20:48 Blood Culture - Preliminary Blood 02/15/18 20:53 Blood Culture - Preliminary Blood Medical - DS: A/P - Patient/Caregiver Discharge Instructions Activity: as per physical therapy, increase activity as tolerated Diet: Consistent Carbohydrate Additional Instructions: Please take levofloxacin 750mg once daily for 3 more days Please take prednisone (with food) 40mg for 5 days, then 35mg for 5 days, and then 30mg daily (your usual home dose). Talk to your provider regarding weaning down the dose of steroids slowly further down. You are at high risk for PCP pneumonia, I am starting you on Bactrim 1 tablet once daily. Talk to your provider with regards for continued prophylaxis. Follow up with Dr Angulo in 2-3 weeks Follow up with PCP in 1 week Go to the ER if worsening condition, chest pain, shortness of breath or any other acute concern. - Follow up Plan Follow up with: Megan Zhang MD [Primary Care Provider] - (The office is closed for the iday; please call to schedule an appointment on Monday or .) Mesfin Angulo MD [Physician] - (Call to schedule a follow up appointment as needed.) Disposition: Home Health Service Prognosis: Fair Rehab Potential: Fair I certify that the patient requires SNF services: No Overall status at discharge: patient is progressing back to baseline Medical - DS: Qual - VTE Deep Vein Thrombosis/Pulmonary Embolism Present on Admission: No
[2018-02-20] MEDS: traMADol 50 MG TABLET PO PRN (13:27)
--- NOTE | 2018-02-20 14:43 | XRay Report ---
CLINICAL INFORMATION: pneumonia follow up COMPARISON: 02/17/2018 chest x-ray and chest CT from 02/15/2018 FINDINGS: Heart size, mediastinum and pulmonary vessels are normal. Bibasilar infiltrates are nearly clear with minimal residual. No definite pleural effusion. IMPRESSION: Near-complete clearance and mild bibasilar infiltrates. Predominantly, in the right middle lobe and lingula Note: Chest CT from 02/15/2018 images and report were reviewed as part of this plain film interpretation. A 2.1 cm pancreatic mass was incompletely imaged on the chest CT and abdominal CT (pancreatic protocol) was recommended, but has not yet performed. Pancreatic adenocarcinoma is suspected. Interpreted and Authenticated by: Jose Cruz Quinonez 02/20/18
[2018-03-15] MEDS ORDERED: MEPOLIZUMAB 100 MG SUB-Q SCH (09:00)
== END 2018-02-20 14:00 | disposition home health service (06) | DRG 871 ==
LOC: ED 17:26 → ICU 22:18
PROVIDERS: ADMIT Internal Medicine; ATTEND Internal Medicine
CPT/HCPCS: 84145; 87324; 87449; 87632; 97161; 99223; 99231; A6248; J1650; J1815; J1817; J1940; J1956; J2543; J2920; J2930; J3370; J3480; J7030; J7050; J7060; J7620; J7620-GY; P9047